=== PATIENT | female | born 1965 | race Caucasian/White ===

== ENCOUNTER → 2017-11-20 08:36 | Outpatient (CLI) | payer BC, SELFPAY ==
--- NOTE | 2017-11-20 08:41 | XR_ITS ---
XR foot LT min 3V HISTORY: ITS.REASON: LT FOOT PAIN ORDERING PHYSICIAN: Cecille De La Fuente PATIENT AGE: 52 years COMPARISON: 11/12/2016 FINDINGS: No fracture or dislocation. No lytic or blastic change. There is normal mineralization.. There are minimal osteoarthritic changes of the first metatarsophalangeal joint. There is a small calcaneal spur nonspecific. IMPRESSION: Minimal osteoarthritis of the first metatarsophalangeal joint. Overall no change with no acute finding
== END ==
PROVIDERS: PCP Nurse Practitioner; Visit Provider Nurse Practitioner
DX: M79.672 Pain in left foot (principal)
CPT/HCPCS: 73630

== ENCOUNTER → 2018-01-28 16:55 | Outpatient (CLI) | payer BC, SELFPAY ==
--- NOTE | 2018-01-28 17:00 | XR_ITS ---
XR chest 2V HISTORY: ITS.REASON: HYPERTENSION, DM ORDERING PHYSICIAN: Fabi Oconenll PATIENT AGE: 52 years COMPARISON: 09/27/2011 FINDINGS: The cardiomediastinal silhouette and pulmonary vascularity are within normal limits. The lungs are clear without infiltrates, suspicious nodules, or pleural effusions. No acute bony abnormalities. IMPRESSION: Negative chest, no acute finding
== END ==
PROVIDERS: PCP Nurse Practitioner; Visit Provider Physician Assistant
DX: I10 Essential (primary) hypertension (principal); E11.9 Type 2 diabetes mellitus without complications; E53.8 Deficiency of other specified B group vitamins; E55.9 Vitamin D deficiency, unspecified; E66.01 Morbid (severe) obesity due to excess calories; G47.33 Obstructive sleep apnea (adult) (pediatric)
CPT/HCPCS: 71046

== ENCOUNTER → 2018-02-05 12:36 | Outpatient (CLI) | payer BC, SELFPAY ==
--- NOTE | 2018-02-05 12:39 | XR_ITS ---
XR wrist LT min 3V HISTORY ITS.REASON: left wrist pain ORDERING PHYSICIAN: Renato Beard MD PATIENT AGE: 52 years Comparison: None FINDINGS: There are osteoarthritic changes of the first metacarpal carpal joint. In addition, there is a separate calcific density along the base of the first metacarpal lateral to the trapezium. This density measures 3 mm and could be due to an avulsion-type fracture. The remaining bony structures are unremarkable. IMPRESSION: Osteoarthritis of the first metacarpocarpal joint with suspected avulsion fracture at the lateral aspect of the first metacarpal carpal
== END ==
PROVIDERS: PCP Nurse Practitioner; Visit Provider Orthopaedic Surgery
DX: M25.532 Pain in left wrist (principal)
CPT/HCPCS: 73110

== ENCOUNTER → 2018-03-04 18:04 | Outpatient (CLI) | payer BC, SELFPAY ==
[2018-03-04 18:19] LABS: Adenovirus F 40/41, stool Not Detected (NotDetected); Astrovirus Not Detected (NotDetected); Campylobacter Not Detected (NotDetected); Cryptosporidium Not Detected (NotDetected); Cyclospora Cayetanesis Not Detected (NotDetected); Entamoeba histolytica Not Detected (NotDetected); Enteroaggregative E coli Not Detected (NotDetected); Enteropathogenic E coli Not Detected (NotDetected); Enterotoxigenic E coli Not Detected (NotDetected); Giardia lamblia Not Detected (NotDetected); Norovirus Not Detected (NotDetected); Plesimonas Shigalloides, PCR Not Detected (NotDetected); Rotavirus A Not Detected (NotDetected); Salmonella, PCR Not Detected (NotDetected); Sapovirus Not Detected (NotDetected); Shiga-like toxin E coli Not Detected (NotDetected); Shigella Enterovasive E coli Not Detected (NotDetected); Vibrio Cholerae Not Detected (NotDetected); Vibrio, PCR Not Detected (NotDetected); Yersinia Entercolitica, PCR Not Detected (NotDetected)
[2018-03-04 22:39] LABS: Clostridium Difficile A/B, PCR Detected (NotDetected)
== END ==
PROVIDERS: PCP Nurse Practitioner; Visit Provider Surgery
DX: R19.7 Diarrhea, unspecified (principal)
CPT/HCPCS: 87507

== ENCOUNTER → 2018-04-08 09:54 | Outpatient (CLI) | payer BC, SELFPAY ==
--- NOTE | 2018-04-08 10:11 | XR_ITS ---
XR chest 2V HISTORY: ITS.REASON: RT SIDED THORACIC BACK PAIN ORDERING PHYSICIAN: Cecille De La Fuente PATIENT AGE: 53 years COMPARISON: 01/28/2018 FINDINGS: The cardiomediastinal silhouette and pulmonary vascularity are within normal limits. The lungs are clear without infiltrates, suspicious nodules, or pleural effusions. No acute bony abnormalities. IMPRESSION: Negative chest, no acute finding
== END ==
PROVIDERS: PCP Nurse Practitioner; Visit Provider Nurse Practitioner
DX: M54.6 Pain in thoracic spine (principal)
CPT/HCPCS: 71046

== ENCOUNTER → 2019-04-16 10:47 | Outpatient (CLI) | payer BC, SELFPAY ==
--- NOTE | 2019-04-16 10:53 | US_ITS ---
PROCEDURE: US KIDNEY CLINICAL INDICATION: ELEVATED BUN,ELEVATED CREATINE COMPARISON: No exams were available for comparison FINDINGS: Right kidney is 10.0 x 4.0 x 5.1 centimeters. Left kidney is 10.0 x 5.1 x 4.9 centimeters. The renal cortical areas are normal. Bilaterally there are no shadowing echogenic foci, cortical lesions or hydronephrosis. IMPRESSION: Normal exam. Dictated by: Gabo Dinero 04/16/2019 11:32 Electronically signed by Gabo Dinero in [facility] 04/16/2019 11:32
== END ==
PROVIDERS: PCP Nurse Practitioner; Visit Provider Nurse Practitioner Family
DX: R79.9 Abnormal finding of blood chemistry, unspecified (principal); R79.89 Other specified abnormal findings of blood chemistry
CPT/HCPCS: 76770

== ENCOUNTER → 2019-06-04 10:52 | Outpatient (CLI) | payer BC, SELFPAY ==
--- NOTE | 2019-06-04 10:59 | XR_ITS ---
PROCEDURE: XR FOOT WT BEARING LT 3V CLINICAL INDICATION: Pain Foot and ankle pain COMPARISON: FTR3 FOOT-RT-3 VIEWS from 09/10/2016 FTL3 FOOT-LT-3 VIEWS from 11/12/2016 FTR3 FOOT-RT-3 VIEWS from 11/12/2016 [id number] XR foot LT min 3V from 11/20/2017 XR ANKLE WT BEARING LT MIN 3V from 06/04/2019 FINDINGS: No fracture or dislocation. No lytic or blastic change. There is normal mineralization. The joint spaces are well-preserved. No significant degenerative/arthritic changes. No erosive changes evident. Other findings:There is a small calcaneal spur and there is borderline pes planus IMPRESSION: Small calcaneal spur with borderline pes planus otherwise negative Dictated by: Jose Washington MD 06/04/2019 11:36 Electronically signed by Jose Washington MD in [facility] 06/04/2019 11:36
--- NOTE | 2019-06-04 10:59 | XR_ITS ---
PROCEDURE: XR FOOT WT BEARING LT 3V CLINICAL INDICATION: Pain Foot and ankle pain COMPARISON: FTR3 FOOT-RT-3 VIEWS from 09/10/2016 FTL3 FOOT-LT-3 VIEWS from 11/12/2016 FTR3 FOOT-RT-3 VIEWS from 11/12/2016 [id number] XR foot LT min 3V from 11/20/2017 XR ANKLE WT BEARING LT MIN 3V from 06/04/2019 FINDINGS: No fracture or dislocation. No lytic or blastic change. There is normal mineralization. The joint spaces are well-preserved. No significant degenerative/arthritic changes. No erosive changes evident. Other findings:There is a small calcaneal spur and there is borderline pes planus IMPRESSION: Small calcaneal spur with borderline pes planus otherwise negative Dictated by: Jose Washington MD 06/04/2019 11:36 Electronically signed by Jose Washington MD in [facility] 06/04/2019 11:36
== END ==
PROVIDERS: PCP Nurse Practitioner; Visit Provider Podiatrist
DX: M72.2 Plantar fascial fibromatosis (principal); M79.672 Pain in left foot; M77.31 Calcaneal spur, right foot; M77.32 Calcaneal spur, left foot
CPT/HCPCS: 73610; 73630

== ENCOUNTER → 2019-06-30 10:22 | Outpatient (CLI) | payer BC, SELFPAY ==
--- NOTE | 2019-06-30 10:22 | MR_ITS ---
PROCEDURE: MR FOOT LT WO/W CON CLINICAL INDICATION: eval for plantar fascial tear, calc stress fx. Left foot pain and swelling COMPARISON: XR FOOT WT BEARING LT 3V from 06/04/2019 TECHNIQUE: Routine multiplanar multi echo sequences are performed without and with gadolinium enhancement. FINDINGS: No obvious ligamentous abnormalities. The plantar fascia has an unremarkable appearance. No fracture or dislocation. No bone bruise. There is a small amount fluid along the posterior talocalcaneal joint.. There is some increased T2 signal within the posterior aspect of the flexor digitorum brevis muscle which is best demonstrated on series 7, image 41 and series 9, image 15. there is a small amount fluid posterior to the talocalcaneal region. IMPRESSION: 1. There is a small focal area of increased T2 signal involving the posterior aspect of the flexor digitorum brevis muscle. This is just deep to the plantar fascia and is approximately 2 cm anterior to the fascial insertion on the calcaneus. This could be due to underlying inflammation or could be posttraumatic such as muscle strain or partial tear. 2. No other significant anomalies are evident. Dictated by: Jose Washington MD 07/03/2019 11:53 Electronically signed by Jose Washington MD in [facility] 07/03/2019 11:53
== END ==
PROVIDERS: PCP Nurse Practitioner; Visit Provider Podiatrist
DX: M72.2 Plantar fascial fibromatosis (principal)
CPT/HCPCS: 73720; A9576

== ENCOUNTER → 2019-12-23 10:11 | Outpatient (CLI) | payer BC, SELFPAY ==
--- NOTE | 2019-12-23 | CA_ITS ---
APPROVED REPORT Right Lower Extremity Venous Study for DVT. Arterial Embalmer: CT Indications Lower Extremity Pain: Right Lower Extremity Edema: Right Vein Imaging CFV (R): compressive, spontaneous, phasic, augmentation SFJ (R): compressive, spontaneous, phasic, augmentation FEM (R): compressive, spontaneous, phasic, augmentation POP (R): compressive, spontaneous, phasic, augmentation DFV (R): compressive, spontaneous, phasic, augmentation PTV (R): compressive, spontaneous, phasic, augmentation GSV (R): compressive, spontaneous, phasic, augmentation SSV (R): compressive, spontaneous, phasic, augmentation Peroneals (R):compressive, spontaneous, phasic, augmentation GAS (R): compressive, spontaneous, phasic, augmentation Findings RLE negative for DVT/SVT. Vessels fully compressible. No reflux noted. Conclusion RLE negative for DVT/SVT. Vessels fully compressible. No reflux noted. Electronically signed by : Jose Washington MD 12/23/2019 17:27:59
== END ==
PROVIDERS: PCP Family Medicine; Visit Provider Family Medicine
DX: M79.671 Pain in right foot (principal); R60.0 Localized edema
CPT/HCPCS: 93971

== ENCOUNTER → 2020-10-17 16:37 | Outpatient (CLI) | payer BC, SELFPAY ==
--- NOTE | 2020-10-17 16:41 | XR_ITS ---
PROCEDURE: XR FOOT WT BEARING LT 3V CLINICAL INDICATION: foot pain COMPARISON: CR FTR3 FOOT-RT-3 VIEWS from 11/12/2016 CR FTL3 FOOT-LT-3 VIEWS from 11/12/2016 CR [id number] XR foot LT min 3V from 11/20/2017 CR XR FOOT WT BEARING LT 3V from 06/04/2019 FINDINGS: No fracture or dislocation. No lytic or blastic change. There is normal mineralization. The joint spaces are well-preserved. No significant degenerative/arthritic changes. No erosive changes evident. Other findings:None. IMPRESSION: No acute findings. Dictated by: Jose Washington MD 10/17/2020 17:26 Jose Washington MD in [facility] 10/17/2020 17:26
== END ==
PROVIDERS: PCP Family Medicine; Visit Provider Podiatrist
DX: M79.672 Pain in left foot (principal)
CPT/HCPCS: 73630

== ENCOUNTER → 2021-03-02 10:04 | Outpatient (CLI) | payer BC, SELFPAY ==
[2021-03-02 12:01] LABS: Coronavirus 19 IgG Antibody Negative (Negative); Coronavirus 19 IgM Antibody Negative (Negative)
== END ==
PROVIDERS: Visit Provider Family Medicine
DX: Z01.84 Encounter for antibody response examination (principal); R50.9 Fever, unspecified
CPT/HCPCS: 86328

== ENCOUNTER → 2021-06-18 14:55 | Outpatient (CLI) | payer BC, SELFPAY ==
--- NOTE | 2021-06-18 | CA_ITS ---
FINAL REPORT CLINICAL HISTORY: cramps with lt le edema and residual pain, C/o-Fibromyalgia FINDINGS: Color Doppler, duplex Doppler and compression sonography of the bilateral lower extremities was performed. There is no evidence of deep venous thrombosis from the level of the groin to the calf. The deep veins are patent and compressible. IMPRESSION: No evidence of deep venous thrombosis bilateral lower extremities. Reviewed, Interpreted and Dictated by Quinn Lynn III, MD Transcribed by Rhea Garcia Authenticated by Quinn Lynn III, MD on 06/18/2021 04:39:14 PM [facility]
== END ==
PROVIDERS: PCP Family Medicine; Visit Provider Family Medicine
DX: R60.0 Localized edema (principal)
CPT/HCPCS: 93970

== ENCOUNTER → 2021-08-29 12:50 | Outpatient (CLI) | payer BC, SELFPAY ==
[2021-08-29 14:10] LABS: Alanine Aminotransferase 28 U/L (12-78); Albumin/Globulin Ratio 1.8 (1.1-1.8); Alkaline Phosphatase 62 U/L (38-126); Anion Gap 9.6 mEq/L (5-15); Aspartate Amino Transferase 28 U/L (14-36); Bilirubin,Total 0.5 mg/dl (0.2-1.3); Blood Urea Nitrogen 20 mg/dl (7-17); Calcium 9.4 mg/dl (8.4-10.2); Carbon Dioxide 30 mmol/L (22.0-30.0); Chloride 103 mmol/L (98-107); Chol/HDL Ratio 3.4 (1-3.5); Cholesterol 238 mg/dl (140-200); Estimated Glomerular Filt Rate 87 ml/min (>60); GFR (African American) 105 ML/MIN (>60); Globulin 2.2 g/dL (1.3-3.2); Glucose 97 mg/dl (74-100); HDL Cholesterol 69 mg/dl (40-60); Potassium 3.6 mmoL/L (3.5-5.1); Sodium 139 mmol/L (136-145); Total Protein,Serum 6.2 g/dl (6.3-8.2); Triglycerides 126 mg/dl (30-150); VLDL Cholesterol 25 mg/dL (0-40)
[2021-08-29 14:21] LABS: Direct LDL Cholesterol 118.95 mg/dL (100-129); Hematocrit 38.6 % (37.0-47.0); Hemoglobin 12.6 g/dL (12.2-16.2); Mean Corpuscular HGB Conc 32.8 g/dL (31.8-35.4); Mean Corpuscular Hemoglobin 28.7 pg (27.0-31.2); Mean Corpuscular Volume 87.7 fl (81-99); Platelet Count 258 K/mm3 (142-424); White Blood Count 6.3 K/mm3 (4.8-10.8)
[2021-08-29 14:24] LABS: Intact Parathyroid Hormone 52.1 pg/mL (7.5-53.5)
[2021-08-29 14:30] LABS: 25-OH Vitamin D, Total 72.6 ng/mL (30-100)
[2021-08-29 14:43] LABS: Thyroid Stimulating Hormone 1.68 uIU/mL (0.465-4.68)
[2021-08-29 15:10] LABS: Ferritin 129 ng/ml (11.1-264)
[2021-08-29 15:15] LABS: Iron 91 ug/dL (37-170)
[2021-08-29 15:25] LABS: Folate > 20.00 ng/mL
[2021-08-29 17:30] LABS: Hemoglobin A1C 6.1 % (4.0-6.0)
[2021-08-31 12:13] LABS: Prealbumin 28 mg/dL (10-36)
[2021-09-09 10:15] LABS: Methylmalonic Acid 175 nmol/L (0-378)
[2021-09-10 16:41] LABS: Vitamin A 59.4 ug/dL (20.1-62.0); Vitamin E Alpha Tocopherol 19.4 mg/L (7.0-25.1); Vitamin E Gamma Tocopherol 1.5 mg/L (0.5-5.5)
== END ==
PROVIDERS: Visit Provider Physician Assistant
DX: Z98.84 Bariatric surgery status (principal); Z13.21 Encounter for screening for nutritional disorder
CPT/HCPCS: 36415; 80053; 80061; 82131; 82306; 82728; 82746; 83036; 83540; 83970; 84134; 84425; 84443; 84446; 84590; 85014; 85018; 85048; 85049

== ENCOUNTER 2021-09-03 15:26 | Emergency (ER) | payer BC, SELFPAY ==
[2021-09-03] VITALS (8 sets, daily range): BP systolic 137–197; BP diastolic 83–108; PULSE 83–101; RESP 12–20; TEMP 36.7; O2SAT 95–98; BMI 37.9
--- NOTE | 2021-09-03 15:21 | ECG_ITS ---
APPROVED REPORT Exam: Resting ECG HR:97 bpm ECG Measurements Heart Rate 97 AXES [place] 160 P 38 QRSd 82 QRS 33 QT 324 T 31 QTc 378 Conclusion SINUS RHYTHM NORMAL ECG UNCONFIRMED REPORT Electronically signed by : Steve Barrett MD 09/04/2021 21:29:50
--- NOTE | 2021-09-03 16:02 | XR_ITS ---
PROCEDURE INFORMATION: Exam: XR Chest Exam date and time: 09/03/2021 4:15 PM Age: 56 years old Clinical indication: Chest wall pain; Additional info: Chest pain TECHNIQUE: Imaging protocol: XR of the chest. Views: 2 views. COMPARISON: CR XR CHEST 2V 04/15/2019 6:34 AM FINDINGS: Lungs: Unremarkable. No consolidation. Pleural spaces: Unremarkable. No pleural effusion. No pneumothorax. Heart/Mediastinum: Unremarkable. No cardiomegaly. Bones/joints: Unremarkable. IMPRESSION: No acute findings.
[2021-09-03 16:19] LABS: Chloride 101 mmol/L (98-107); Sodium 137 mmol/L (136-145)
[2021-09-03 16:20] LABS: Potassium 3.6 mmoL/L (3.5-5.1)
[2021-09-03 16:22] LABS: Amylase 61 U/L (30-110); Basophils % 0.5 % (0.1-2.0); Blood Urea Nitrogen 26 mg/dl (7-17); Creatinine Clearance Estimated 130 mL/min (50-200); Eosinophils # 0.2 K/mm3 (0.0-0.4); Eosinophils % 1.8 % (0.1-12.0); Estimated Glomerular Filt Rate 74 ml/min (>60); GFR (African American) 90 ML/MIN (>60); Hematocrit 40.7 % (37.0-47.0); Hemoglobin 13.2 g/dL (12.2-16.2); Lymphocytes # 1.1 K/mm3 (0.7-4.5); Lymphocytes % 13.9 % (10-50); Mean Corpuscular HGB Conc 32.5 g/dL (31.8-35.4); Mean Corpuscular Hemoglobin 28.6 pg (27.0-31.2); Mean Corpuscular Volume 88.2 fl (81-99); Mean Platelet Volume 8.8 fl (7.4-10.4); Monocytes # 0.4 K/mm3 (0.1-1.0); Monocytes % 4.5 % (1.7-9.3); Neutrophils # 6.5 K/mm3 (1.8-7.8); Neutrophils % 79.3 % (37.0-80.0); Platelet Count 280 K/mm3 (142-424); Red Blood Count 4.61 M/mm3 (4.20-5.40); White Blood Count 8.3 K/mm3 (4.8-10.8)
[2021-09-03 16:23] LABS: Anion Gap 9.6 mEq/L (5-15); Carbon Dioxide 30 mmol/L (22.0-30.0); Glucose 117 mg/dl (74-100); Lipase 251 U/L (23-300)
--- NOTE | 2021-09-03 16:31 | PC.NURSE ---
ED MD at
[2021-09-03 16:39] LABS: Troponin I < 0.01 ng/ml (0.00-0.034)
[2021-09-03 16:45] LABS: Chloride 101 mmol/L (98-107); Potassium 3.7 mmoL/L (3.5-5.1); Sodium 136 mmol/L (136-145)
[2021-09-03 16:47] LABS: Alanine Aminotransferase 40 U/L (12-78); Blood Urea Nitrogen 26 mg/dl (7-17); Creatinine Clearance Estimated 130 mL/min (50-200); Estimated Glomerular Filt Rate 74 ml/min (>60); GFR (African American) 90 ML/MIN (>60)
[2021-09-03 16:48] LABS: Albumin Level 4.1 g/dl (3.5-5.0); Albumin/Globulin Ratio 1.4 (1.1-1.8); Alkaline Phosphatase 69 U/L (38-126); Anion Gap 9.7 mEq/L (5-15); Aspartate Amino Transferase 61 U/L (14-36); Bilirubin,Total 0.9 mg/dl (0.2-1.3); Calcium 9.1 mg/dl (8.4-10.2); Carbon Dioxide 29 mmol/L (22.0-30.0); Globulin 2.9 g/dL (1.3-3.2); Glucose 117 mg/dl (74-100)
[2021-09-03 17:06] LABS: Lactic Acid 0.9 mmol/L (0.7-2.1)
--- NOTE | 2021-09-03 18:30 | PC.NURSE ---
patient ambulatory to restroom without complications
--- NOTE | 2021-09-03 18:40 | PC.NURSE ---
patient ambulatory back to ED room 3 without complications
[2021-09-03 20:00] LABS: Troponin I < 0.01 ng/ml (0.00-0.034)
--- NOTE | 2021-09-03 20:20 | CT_ITS ---
PROCEDURE INFORMATION: Exam: CT Abdomen And Pelvis With Contrast Exam date and time: 09/03/2021 8:31 PM Age: 56 years old Clinical indication: Nausea and vomiting and other: Diarrhea; Abdominal pain; Additional info: Abd pain TECHNIQUE: Imaging protocol: Computed tomography of the abdomen and pelvis with contrast. Radiation optimization: All CT scans at this facility use at least one of these dose optimization techniques: automated exposure control; mA and/or kV adjustment per patient size (includes targeted exams where dose is matched to clinical indication); or iterative reconstruction. Contrast material: ISOVUE; Contrast volume: 75 ml; Contrast route: IV; COMPARISON: US KIDNEY 04/16/2019 10:39 AM FINDINGS: Liver: Normal. No mass. Gallbladder and bile ducts: Normal. No calcified stones. No ductal dilation. Pancreas: Normal. No ductal dilation. Spleen: Normal. No splenomegaly. Adrenal glands: 1.2 cm left adrenal adenoma. Kidneys and ureters: Normal. No hydronephrosis. Stomach and bowel: Surgical staple line along the left lateral gastric wall. Appendix: No evidence of appendicitis. Intraperitoneal space: Unremarkable. No free air. No significant fluid collection. Vasculature: Unremarkable. No abdominal aortic aneurysm. Lymph nodes: Unremarkable. No enlarged lymph nodes. Urinary bladder: Unremarkable as visualized. Reproductive: Unremarkable as visualized. Bones/joints: Unremarkable. No acute fracture. Soft tissues: Unremarkable. IMPRESSION: 1. No acute findings. 2. 1.2 cm left adrenal adenoma. No follow-up imaging is recommended.
--- NOTE | 2021-09-03 21:43 | HMH.EDGENADL ---
ED Disposition Clinical Impression: Abdominal discomfort Disposition: Home, Self-Care Condition on Discharge: Good Prescriptions: Ondansetron [Zofran 4mg ODT] 4 mg PO TIDP PRN 2 Days #6 tab PRN Reason: Nausea Transmission Status: Pending to [facility] #[id number] Referrals: Vannessa Lopez [Primary Care Provider] - - Critical Care Critical Care Time: No Attestation: On 09/03/21, the high probability of a clinically significant, sudden or life threatening deterioration of the following system(s) required my full and direct attention, intervention and personal management. The time I documented below is in addition to time spent performing reported procedures but includes the following listed in this critical care notation. Medical Decision Making - Nash Inquiry Pt receiving controlled substance: No Vital Signs: 09/03/21 15:26 09/03/21 15:30 09/03/21 16:00 Temperature Pulse Rate 97 H 99 H Pulse Rate [Left Radial] 97 H Respiratory Rate 18 Blood Pressure 137/90 172/96 H Blood Pressure [Right Arm] 160/96 H Blood Pressure Mean 123 Blood Pressure Mean [Right Arm] 117 Blood Pressure Source Automatic Cuff Blood Pressure Source [Right Arm] Automatic Cuff Blood Pressure Position Sitting Blood Pressure Position [Right Arm] Sitting 02 Sat by Pulse Oximetry 95 96 98 Oxygen Delivery Method Room Air Room Air 09/03/21 16:30 09/03/21 17:00 09/03/21 17:30 Temperature Pulse Rate 101 H 90 Pulse Rate [Left Radial] Respiratory Rate 12 20 18 Blood Pressure 163/89 H 183/96 H Blood Pressure [Right Arm] Blood Pressure Mean 113 125 Blood Pressure Mean [Right Arm] Blood Pressure Source Blood Pressure Source [Right Arm] Blood Pressure Position Blood Pressure Position [Right Arm] 02 Sat by Pulse Oximetry 97 Oxygen Delivery Method 09/03/21 18:00 09/03/21 21:39 Temperature 98.1 F Pulse Rate 90 83 Pulse Rate [Left Radial] Respiratory Rate 19 17 Blood Pressure 197/108 H 162/83 H Blood Pressure [Right Arm] Blood Pressure Mean 130 Blood Pressure Mean [Right Arm] Blood Pressure Source Blood Pressure Source [Right Arm] Blood Pressure Position Blood Pressure Position [Right Arm] 02 Sat by Pulse Oximetry 98 Oxygen Delivery Method Room Air - Lab Data Lab Results 09/03/21 15:45: WBC 8.3, RBC 4.61, Hgb 13.2, Hct 40.7, MCV 88.2, MCH 28.6, MCHC 32.5, RDW 14.0, Plt Count 280, MPV 8.8, Neut % (Auto) 79.3, Lymph % (Auto) 13.9, [place] % (Auto) 4.5, Eos % (Auto) 1.8, Baso % (Auto) 0.5, Neut # (Auto) 6.5, Lymph # (Auto) 1.1, [place] # (Auto) 0.4, Eos # (Auto) 0.2, Baso # (Auto) 0.0 09/03/21 15:45: Sodium 137, Potassium 3.6, Chloride 101, Carbon Dioxide 30, Anion Gap 9.6, BUN 26 H, Creatinine 0.80, Estimated Creat Clear 130, Estimated GFR 74, Est GFR ( Amer) 90, Glucose 117 H, Calcium 9.0, Troponin I < 0.01, Amylase 61, Lipase 251 09/03/21 15:45: Sodium 136, Potassium 3.7, Chloride 101, Carbon Dioxide 29, Anion Gap 9.7, BUN 26 H, Creatinine 0.80, Estimated Creat Clear 130, Estimated GFR 74, Est GFR ( Amer) 90, Glucose 117 H, Calcium 9.1, Total Bilirubin 0.9, AST 61 H, ALT 40, Alkaline Phosphatase 69, Total Protein 7.0, Albumin 4.1, Globulin 2.9, Albumin/Globulin Ratio 1.4 09/03/21 16:44: Lactate 0.9 09/03/21 19:21: Troponin I < 0.01 Result diagrams: 09/03/21 15:45 09/03/21 15:45 Orders (Tests/Meds): ED MEDICATIONS Generic Name Dose Route Start Last Admin Trade Name Freq PRN Reason Stop Dose Admin Sodium Chloride 500 mls @ 999 mls/hr 09/03/21 16:45 09/03/21 16:48 Sod Chlor 0.9% 1000ml Bag IV 09/03/21 17:15 999 mls/hr .Q31M CHUCK Administration Lactated Ringer's 1,000 mls @ 999 mls/hr 09/03/21 20:30 09/03/21 20:22 Lactated Ringer's 1000 Ml Bag IV 09/03/21 21:30 999 mls/hr .Q1H1M CHUCK Administration Sodium Chloride 10 ml 09/03/21 16:02 Sodium Chloride 0.9% 10ml Flush Syringe IV 10/03/21 16:01
== END 2021-09-03 21:48 | disposition home or self-care (01) ==
PROVIDERS: Emergency Provider Student in an Organized Health Care Education/Training Program; PCP Family Medicine
DX: R07.9 Chest pain, unspecified (principal); R11.2 Nausea with vomiting, unspecified; I10 Essential (primary) hypertension; K58.0 Irritable bowel syndrome with diarrhea; E11.9 Type 2 diabetes mellitus without complications; E03.9 Hypothyroidism, unspecified; M35.00 Sjogren syndrome, unspecified; M79.7 Fibromyalgia; F41.9 Anxiety disorder, unspecified; Z98.84 Bariatric surgery status; Z79.899 Other long term (current) drug therapy; Z88.0 Allergy status to penicillin; Z88.2 Allergy status to sulfonamides; Z88.8 Allergy status to other drugs, medicaments and biological substances; Z87.891 Personal history of nicotine dependence
CPT/HCPCS: 36415; 71046; 74177; 80048; 80053; 82150; 83605; 83690; 84484; 85025; 93005; 96361; 96374; 96375; 99285; J2405; Q9967

== ENCOUNTER → 2022-03-15 09:45 | Outpatient (CLI) | payer BC, SELFPAY ==
--- NOTE | 2022-03-15 10:20 | PC.NURSE ---
before and after PFT completed without incident. Pt given Albuterol 0.083% via HHN per protocol, Pt tolerated tx well.
== END ==
PROVIDERS: PCP Family Medicine; Visit Provider Family Medicine
DX: R06.02 Shortness of breath (principal); Z72.0 Tobacco use
CPT/HCPCS: 94060

== ENCOUNTER 2022-06-20 09:46 | Emergency (ER) | payer BC, SELFPAY ==
--- NOTE | 2022-06-20 09:51 | CT_ITS ---
FINAL REPORT TECHNIQUE: Thin section axial images were obtained from skull base to vertex without contrast. Coronal and sagittal reconstruction images were obtained from the axial data. Exam was performed using dose reduction technique. CLINICAL HISTORY: headache change in character, patient states she gets frequent migraines FINDINGS: There is no mass effect or midline shift. There is no hydrocephalus. There is no intracranial hemorrhage. The posterior fossa is without acute abnormality. The basilar cisterns are preserved. The soft tissues are without acute abnormality. No acute osseous abnormality is identified. IMPRESSION: No acute intracranial abnormality. Reviewed, Interpreted and Dictated by Lisbet Hdz MD Transcribed by Rhea Garcia Authenticated and [facility]
[2022-06-20 09:54] VITALS: BP 135/52; PULSE 98; RESP 20; TEMP 37.1; O2SAT 96; BMI 37.3
--- NOTE | 2022-06-20 09:58 | HMH.EDGENADL ---
Discharge Plan Disposition Patient Disposition: Home, Self-Care Condition: Fair Chief Complaint: Headache Prescriptions Prescriptions: No Action Saxenda 3 mg/0.5 mL (18 mg/3 mL) pen injector 3 mg SQ ergocalciferol (vitamin D2) 1,000 unit tablet 1,000 unit tablet PO levothyroxine 125 mcg capsule 125 mcg PO DAILY omeprazole 20 mg capsule,delayed release(DR/EC) 20 mg PO DAILY metoprolol succinate 100 mg capsule,sprinkle,ER 24hr 100 mg PO DAILY vitamin B complex [B Complex-Vitamin B12] tablet 1 tab PO DAILY calcium polycarbophil [Fiber Therapy (ca polycarboph)] 625 mg tablet 1,250 mg PO DAILY tizanidine 4 mg capsule 4 mg PO HS biotin 10,000 mcg capsule 10,000 mcg PO DAILY losartan 100 mg tablet PO hydrochlorothiazide 25 mg tablet PO potassium 99 MG tablet 99 mg PO DAILY ondansetron 4 MG tablet,disintegrating 4 mg PO TIDP PRN (Reason: Nausea) 2 Days Qty: 6 0RF Referrals Follow up/Referrals: Vannessa Lopez [Primary Care Provider] - See instructions Activity Restrictions/Add. Instructions Additional Instructions/Restrictions: You have been evaluated for headache, consistent with migraine. Please monitor your symptoms closely. Continue taking all medications as prescribed. Your creatinine level today is elevated, indicating kidney injury. Please stay hydrated. Avoid NSAID medication. Follow-up with your primary care doctor for lab recheck in 2 to 3 days. Return to the emergency department at once for any new or worsening symptoms. Clinical Impressions Clinical Impression: Migraine, Creatinine elevation, MAGALI (acute kidney injury) Instructions Patient Instructions: DI for Migraine Discharge ED Provider: Rhonda Vega Adult HPI General Chief complaint: Headache Stated complaint: Headache Time Seen by Provider: 06/20/22 09:50 Mode of Arrival: Ambulatory Source of Information: Patient Limitations: No Limitations History of Present Illness HPI narrative: 57-year-old female presenting to the emergency department with headache. Headache is described as constant, pounding. It is located on the right side of the scalp. Radiates all over the head. This headache started yesterday evening. Started similar to her migraines. Was worse this morning. She tried taking her prescribed Ubrelvy without relief. She suffers from migraine headaches a few times every month. They have been coming more frequent. No vision changes, speech difficulty. No recent illness, fevers, chills, nausea, vomiting. She has a neurologist and believes she has had head imaging, but not sure when. Related Data Home Medications Medication Instructions Recorded Confirmed biotin 10,000 mcg capsule 10,000 mcg PO DAILY Diet supplement 02/05/18 11/07/20 calcium polycarbophil 625 mg 1,250 mg PO DAILY Diet supplement 02/05/18 11/07/20 tablet (Fiber Therapy (ca polycarbophil)) levothyroxine 125 mcg capsule 125 mcg PO DAILY thyroid 02/05/18 11/07/20 metoprolol succinate 100 mg 100 mg PO DAILY High blood pressure 02/05/18 11/07/20 capsule sprinkle, ext. release 24 hr omeprazole 20 mg capsule,delayed 20 mg PO DAILY GERD 02/05/18 11/07/20 release tizanidine 4 mg capsule 4 mg PO HS spasms 02/05/18 11/07/20 vitamin B complex (B 1 tab PO DAILY Diet supplement 02/05/18 11/07/20 Complex-Vitamin B12 tablet) potassium 99 mg tablet 99 mg PO DAILY Diet supplement 04/15/19 11/07/20 hydrochlorothiazide 25 mg tablet PO 06/17/19 11/07/20 losartan 100 mg tablet PO 06/17/19 11/07/20 ergocalciferol (vitamin D2) 1,000 tab PO 11/07/20 unit tablet liraglutide (weight loss) 3 mg/0.5 3 mg SQ 11/07/20 11/07/20 mL (18 mg/3 mL) subcut pen injector (Peyman) Previous Rx's Medication Instructions Recorded ondansetron 4 mg disintegrating 4 mg PO TIDP PRN Nausea 2 days #6 09/03/21 tablet tabs Allergies Allergy/AdvReac Type Severity
[2022-06-20 10:00] VITALS: BP 134/68; PULSE 98; O2SAT 97
[2022-06-20 10:06] LABS: Basophils # 0.1 K/mm3 (0-0.2); Basophils % 1.4 % (0.1-2.0); Eosinophils # 0.2 K/mm3 (0.0-0.4); Eosinophils % 3.2 % (0.1-12.0); Hematocrit 40.8 % (37.0-47.0); Hemoglobin 13.3 g/dL (12.2-16.2); Lymphocytes # 0.9 K/mm3 (0.7-4.5); Lymphocytes % 12.6 % (10-50); Mean Corpuscular HGB Conc 32.6 g/dL (31.8-35.4); Mean Corpuscular Hemoglobin 28.3 pg (27.0-31.2); Mean Corpuscular Volume 86.6 fl (81-99); Mean Platelet Volume 8.9 fl (7.4-10.4); Monocytes # 0.8 K/mm3 (0.1-1.0); Monocytes % 11.7 % (1.7-9.3); Neutrophils # 4.9 K/mm3 (1.8-7.8); Neutrophils % 71.1 % (37.0-80.0); Platelet Count 301 K/mm3 (142-424); Red Blood Count 4.71 M/mm3 (4.20-5.40); Red Cell Distribution Width 13.7 % (11.5-17.5); White Blood Count 6.9 K/mm3 (4.8-10.8)
[2022-06-20 10:12] LABS: Chloride 97 mmol/L (98-107); Sodium 137 mmol/L (136-145)
[2022-06-20 10:13] LABS: Potassium 3.5 mmoL/L (3.5-5.1)
[2022-06-20 10:15] LABS: Alanine Aminotransferase 25 U/L (12-78); Albumin Level 4.5 g/dl (3.5-5.0); Alkaline Phosphatase 62 U/L (38-126); Aspartate Amino Transferase 29 U/L (14-36); Bilirubin,Total 0.4 mg/dl (0.2-1.3); Blood Urea Nitrogen 32 mg/dl (7-17); Creatinine Clearance Estimated 53 mL/min (50-200); Estimated Glomerular Filt Rate 27 ml/min (>60); GFR (African American) 33 ML/MIN (>60)
[2022-06-20 10:16] LABS: Albumin/Globulin Ratio 1.5 (1.1-1.8); Anion Gap 12.5 mEq/L (5-15); Calcium 8.9 mg/dl (8.4-10.2); Carbon Dioxide 31 mmol/L (22.0-30.0); Glucose 106 mg/dl (74-100); Total Protein,Serum 7.5 g/dl (6.3-8.2)
[2022-06-20 10:21] LABS: C-Reactive Protein 15.6 mg/L (0-4)
--- NOTE | 2022-06-20 10:21 | PC.NURSE ---
pt medicated and updated
[2022-06-20 10:30] VITALS: BP 149/84; PULSE 91; O2SAT 99
[2022-06-20 10:48] LABS: Erythrocyte Sedimentation Rate 24 mm/hr (0-30)
--- NOTE | 2022-06-20 10:58 | PC.NURSE ---
contacted rad to check on status of ct results, waiting employment consultant back
[2022-06-20 11:01] VITALS: BP 146/73; PULSE 84; RESP 20; O2SAT 96
--- NOTE | 2022-06-20 11:36 | PC.NURSE ---
PT DOING FINE WITH PO CHALLENGE
--- NOTE | 2022-06-20 11:54 | PC.NURSE ---
PT BEING D/C WITH NO QUESTIONS OR CONCERNS
[2022-06-20 11:56] VITALS: BP 116/54; PULSE 84; RESP 18; TEMP 37.1; O2SAT 97
== END 2022-06-20 11:56 | disposition home or self-care (01) ==
PROVIDERS: Emergency Provider Emergency Medicine; PCP Family Medicine
DX: G43.909 Migraine, unspecified, not intractable, without status migrainosus (principal); N17.9 Acute kidney failure, unspecified
CPT/HCPCS: 70450; 80053; 85025; 85651; 86140; 96361; 96374; 96375; 99285

== ENCOUNTER → 2022-12-13 07:21 | Outpatient (CLI) | payer BC, SELFPAY ==
[2022-12-13 07:47] LABS: Basophils % 0.5 % (0.1-2.0); Eosinophils # 0.3 K/mm3 (0.0-0.4); Hematocrit 40.9 % (37.0-47.0); Lymphocytes # 2.1 K/mm3 (0.7-4.5); Lymphocytes % 33.7 % (10-50); Mean Corpuscular HGB Conc 31.8 g/dL (31.8-35.4); Mean Corpuscular Hemoglobin 27.9 pg (27.0-31.2); Mean Platelet Volume 9.3 fl (7.4-10.4); Monocytes # 0.4 K/mm3 (0.1-1.0); Monocytes % 6.8 % (1.7-9.3); Neutrophils # 3.4 K/mm3 (1.8-7.8); Neutrophils % 55.1 % (37.0-80.0); Platelet Count 262 K/mm3 (142-424); Red Blood Count 4.65 M/mm3 (4.20-5.40); Red Cell Distribution Width 13.5 % (11.5-17.5); White Blood Count 6.2 K/mm3 (4.8-10.8)
[2022-12-13 08:28] LABS: Hemoglobin A1C 5.9 % (4.0-6.0)
[2022-12-13 08:55] LABS: Alanine Aminotransferase 22 U/L (12-78); Albumin Level 4.2 g/dl (3.5-5.0); Albumin/Globulin Ratio 1.6 (1.1-1.8); Alkaline Phosphatase 69 U/L (38-126); Anion Gap 12.6 mEq/L (5-15); Aspartate Amino Transferase 25 U/L (14-36); Bilirubin,Total 0.3 mg/dl (0.2-1.3); Blood Urea Nitrogen 20 mg/dl (7-17); Calcium 9.5 mg/dl (8.4-10.2); Carbon Dioxide 31 mmol/L (22.0-30.0); Chloride 102 mmol/L (98-107); Chol/HDL Ratio 5.5 (1-3.5); Cholesterol 241 mg/dl (140-200); Estimated Glomerular Filt Rate 46 ml/min (>60); GFR (African American) 56 ML/MIN (>60); Globulin 2.6 g/dL (1.3-3.2); Glucose 94 mg/dl (74-100); HDL Cholesterol 44 mg/dl (40-60); Phosphorous 4.3 mg/dl (2.5-4.5); Potassium 4.6 mmoL/L (3.5-5.1); Sodium 141 mmol/L (136-145); Total Protein,Serum 6.8 g/dl (6.3-8.2); Triglycerides 184 mg/dl (30-150); VLDL Cholesterol 37 mg/dL (0-40)
[2022-12-13 09:07] LABS: Direct LDL Cholesterol 122.23 mg/dL (100-129)
[2022-12-13 09:11] LABS: Free T4 (Free Thyroxine) 0.99 ng/dl (0.78-2.19)
[2022-12-13 09:13] LABS: 25-OH Vitamin D, Total 74.6 ng/mL (30-100)
[2022-12-13 09:26] LABS: Thyroid Stimulating Hormone 3.27 uIU/mL (0.465-4.68)
[2022-12-13 09:36] LABS: Iron 70 ug/dL (37-170)
[2022-12-13 09:46] LABS: Total Iron Binding Capacity 297 ug/dL (265-497)
[2022-12-13 10:13] LABS: Ferritin 158 ng/ml (11.1-264)
[2022-12-17 19:27] LABS: Vitamin B1 131.1 nmol/L (66.5-200.0)
[2022-12-18 13:41] LABS: Vitamin A 80.4 ug/dL (20.1-62.0); Vitamin E Alpha Tocopherol 19.9 mg/L (7.0-25.1); Vitamin E Gamma Tocopherol 1.1 mg/L (0.5-5.5)
[2022-12-19 10:46] LABS: Methylmalonic Acid 198 nmol/L (0-378)
== END ==
LOC: LAB 07:21
PROVIDERS: PCP Family Medicine; Visit Provider Physician Assistant
DX: Z90.3 Acquired absence of stomach [part of] (principal)
CPT/HCPCS: 36415; 80053; 80061; 82306; 82728; 82746; 83036; 83540; 83550; 83735; 83921; 84100; 84425; 84439; 84443; 84446; 84590; 85025

== ENCOUNTER → 2023-04-18 08:53 | Outpatient (CLI) | payer BC, SELFPAY ==
[2023-04-18 09:23] LABS: Basophils # 0.1 K/mm3 (0-0.2); Basophils % 1.2 % (0.1-2.0); Eosinophils # 0.1 K/mm3 (0.0-0.4); Eosinophils % 2.3 % (0.1-12.0); Hematocrit 39.4 % (37.0-47.0); Hemoglobin 13.3 g/dL (12.2-16.2); Lymphocytes % 37.8 % (10-50); Mean Corpuscular HGB Conc 33.6 g/dL (31.8-35.4); Mean Corpuscular Hemoglobin 28.7 pg (27.0-31.2); Mean Corpuscular Volume 85.3 fl (81-99); Mean Platelet Volume 8.1 fl (7.4-10.4); Monocytes # 0.4 K/mm3 (0.1-1.0); Neutrophils # 2.7 K/mm3 (1.8-7.8); Neutrophils % 51.7 % (37.0-80.0); Platelet Count 329 K/mm3 (142-424); Red Blood Count 4.62 M/mm3 (4.20-5.40); Red Cell Distribution Width 13.6 % (11.5-17.5); White Blood Count 5.3 K/mm3 (4.8-10.8)
[2023-04-18 09:47] LABS: Chloride 102 mmol/L (98-107); Sodium 137 mmol/L (136-145)
[2023-04-18 09:49] LABS: Alanine Aminotransferase 23 U/L (12-78); Aspartate Amino Transferase 27 U/L (14-36); Blood Urea Nitrogen 25 mg/dl (7-17); Estimated Glomerular Filt Rate 51 ml/min (>60); GFR (African American) 62 ML/MIN (>60)
[2023-04-18 09:50] LABS: Albumin Level 4.1 g/dl (3.5-5.0); Albumin/Globulin Ratio 1.7 (1.1-1.8); Alkaline Phosphatase 65 U/L (38-126); Bilirubin,Total 0.6 mg/dl (0.2-1.3); Calcium 9.1 mg/dl (8.4-10.2); Carbon Dioxide 29 mmol/L (22.0-30.0); Chol/HDL Ratio 4.8 (1-3.5); Cholesterol 220 mg/dl (140-200); Globulin 2.4 g/dL (1.3-3.2); Glucose 98 mg/dl (74-100); HDL Cholesterol 46 mg/dl (40-60); Iron 91 ug/dL (37-170); Total Protein,Serum 6.5 g/dl (6.3-8.2); Triglycerides 155 mg/dl (30-150); VLDL Cholesterol 31 mg/dL (0-40)
[2023-04-18 10:01] LABS: Direct LDL Cholesterol 125.73 mg/dL (100-129)
[2023-04-18 10:03] LABS: Total Iron Binding Capacity 307 ug/dL (265-497)
[2023-04-18 10:07] LABS: Hemoglobin A1C 5.7 % (4.0-6.0)
[2023-04-18 10:09] LABS: Free T4 (Free Thyroxine) 1.14 ng/dl (0.78-2.19)
[2023-04-18 10:26] LABS: Thyroid Stimulating Hormone 3.32 uIU/mL (0.465-4.68)
[2023-04-18 10:30] LABS: Ferritin 223 ng/ml (11.1-264)
[2023-04-18 11:11] LABS: 25-OH Vitamin D, Total 75.3 ng/mL (30-100)
[2023-04-18 13:43] LABS: Folate > 20.00 ng/mL
[2023-04-19 08:37] LABS: Prealbumin 34 mg/dL (10-36)
[2023-04-22 20:21] LABS: Vitamin A 91.9 ug/dL (20.1-62.0); Vitamin E Alpha Tocopherol 15.4 mg/L (7.0-25.1); Vitamin E Gamma Tocopherol 1.4 mg/L (0.5-5.5)
[2023-04-23 22:49] LABS: Methylmalonic Acid 194 nmol/L (0-378)
== END ==
PROVIDERS: PCP Family Medicine; Referring Provider Physician Assistant; Visit Provider Physician Assistant
DX: Z90.3 Acquired absence of stomach [part of] (principal); E78.5 Hyperlipidemia, unspecified; Z79.899 Other long term (current) drug therapy
CPT/HCPCS: 36415; 80053; 80061; 82306; 82728; 82746; 83036; 83540; 83550; 83921; 84134; 84425; 84439; 84443; 84446; 84590; 85025

== ENCOUNTER 2023-06-18 16:50 | Outpatient (CLI) | payer BC, SELFPAY ==
[2023-06-18 18:14] LABS: Alanine Aminotransferase 19 U/L (12-78); Albumin Level 4.5 g/dl (3.5-5.0); Albumin/Globulin Ratio 1.7 (1.1-1.8); Alkaline Phosphatase 64 U/L (38-126); Anion Gap 11.8 mEq/L (5-15); Aspartate Amino Transferase 25 U/L (14-36); Bilirubin,Total 0.3 mg/dl (0.2-1.3); Blood Urea Nitrogen 22 mg/dl (7-17); Calcium 9.4 mg/dl (8.4-10.2); Carbon Dioxide 29 mmol/L (22.0-30.0); Chloride 105 mmol/L (98-107); Estimated Glomerular Filt Rate 65 ml/min (>60); GFR (African American) 78 ML/MIN (>60); Globulin 2.7 g/dL (1.3-3.2); Glucose 95 mg/dl (74-100); Potassium 3.8 mmoL/L (3.5-5.1); Sodium 142 mmol/L (136-145); Total Protein,Serum 7.2 g/dl (6.3-8.2)
== END 2023-06-18 23:59 ==
LOC: LAB 16:51
PROVIDERS: PCP Family Medicine; Visit Provider Family Medicine
DX: N18.2 Chronic kidney disease, stage 2 (mild) (principal)
CPT/HCPCS: 36415; 80053; 84590

== ENCOUNTER 2023-08-14 08:43 | Outpatient (CLI) | payer BC, SELFPAY ==
[2023-08-17 22:07] LABS: Vitamin A 84.2 ug/dL (20.1-62.0)
== END 2023-08-14 23:59 | disposition home or self-care (01) ==
LOC: LAB 08:43
PROVIDERS: PCP Family Medicine; Visit Provider Family Medicine
DX: E67.0 Hypervitaminosis A (principal)
CPT/HCPCS: 36415; 84590

== ENCOUNTER 2023-11-20 07:47 | Outpatient (CLI) | payer BC, SELFPAY ==
[2023-11-20 08:12] LABS: Basophils # 0.1 K/mm3 (0-0.2); Basophils % 1.1 % (0.1-2.0); Eosinophils # 0.1 K/mm3 (0.0-0.4); Eosinophils % 2.9 % (0.1-12.0); Hematocrit 37.9 % (37.0-47.0); Hemoglobin 12.2 g/dL (12.2-16.2); Lymphocytes # 1.6 K/mm3 (0.7-4.5); Lymphocytes % 32.9 % (10-50); Mean Corpuscular HGB Conc 32.1 g/dL (31.8-35.4); Mean Corpuscular Hemoglobin 28.8 pg (27.0-31.2); Mean Corpuscular Volume 89.7 fl (81-99); Mean Platelet Volume 8.2 fl (7.4-10.4); Monocytes # 0.3 K/mm3 (0.1-1.0); Monocytes % 6.1 % (1.7-9.3); Neutrophils # 2.7 K/mm3 (1.8-7.8); Neutrophils % 56.9 % (37.0-80.0); Platelet Count 277 K/mm3 (142-424); Red Blood Count 4.23 M/mm3 (4.20-5.40); Red Cell Distribution Width 13.9 % (11.5-17.5); White Blood Count 4.8 K/mm3 (4.8-10.8)
[2023-11-20 08:36] LABS: Alanine Aminotransferase 18 U/L (12-78); Albumin Level 3.9 g/dl (3.5-5.0); Albumin/Globulin Ratio 1.6 (1.1-1.8); Alkaline Phosphatase 58 U/L (38-126); Anion Gap 8.8 mEq/L (5-15); Aspartate Amino Transferase 22 U/L (14-36); Bilirubin,Total 0.5 mg/dl (0.2-1.3); Blood Urea Nitrogen 27 mg/dl (7-17); Calcium 9.2 mg/dl (8.4-10.2); Carbon Dioxide 31 mmol/L (22.0-30.0); Chloride 103 mmol/L (98-107); Chol/HDL Ratio 3.9 (1-3.5); Cholesterol 205 mg/dl (140-200); Estimated Glomerular Filt Rate 51 ml/min (>60); GFR (African American) 62 ML/MIN (>60); Globulin 2.5 g/dL (1.3-3.2); Glucose 93 mg/dl (74-100); HDL Cholesterol 52 mg/dl (40-60); Potassium 3.8 mmoL/L (3.5-5.1); Sodium 139 mmol/L (136-145); Total Protein,Serum 6.4 g/dl (6.3-8.2); Triglycerides 138 mg/dl (30-150); VLDL Cholesterol 28 mg/dL (0-40)
[2023-11-20 09:10] LABS: Hemoglobin A1C 5.4 % (4.0-6.0)
[2023-11-20 10:01] LABS: 25-OH Vitamin D, Total 57.8 ng/mL (30-100)
[2023-11-20 10:25] LABS: Free T4 (Free Thyroxine) 1.22 ng/dl (0.78-2.19)
[2023-11-20 11:12] LABS: Direct LDL Cholesterol 112.13 mg/dL (100-129)
[2023-11-20 11:35] LABS: Thyroid Stimulating Hormone 4.78 uIU/mL (0.465-4.68)
[2023-11-20 12:12] LABS: Folate 7.54 ng/mL
[2023-11-20 21:43] LABS: Total Iron Binding Capacity 296 ug/dL (265-497)
[2023-11-20 22:29] LABS: Iron 99 ug/dL (37-170)
[2023-11-21 08:30] LABS: Prealbumin 32 mg/dL (10-36)
[2023-11-24 01:08] LABS: Vitamin B1 83.6 nmol/L (66.5-200.0)
[2023-11-26 15:21] LABS: Vitamin A 89.5 ug/dL (20.1-62.0)
[2023-12-08 15:43] LABS: Methylmalonic Acid 217 nmol/L (0-378)
== END 2023-11-20 23:59 | disposition home or self-care (01) ==
LOC: LAB 07:50
PROVIDERS: PCP Family Medicine; Visit Provider Physician Assistant
DX: E11.9 Type 2 diabetes mellitus without complications (principal); E78.5 Hyperlipidemia, unspecified; I10 Essential (primary) hypertension; Z91.89 Other specified personal risk factors, not elsewhere classified; Z90.3 Acquired absence of stomach [part of]; R89.8 Other abnormal findings in specimens from other organs, systems and tissues
CPT/HCPCS: 36415; 80050; 80053; 80061; 82306; 82746; 83036; 83540; 83550; 83921; 84134; 84425; 84439; 84443; 84590; 85025

== ENCOUNTER 2024-01-16 15:10 | Outpatient (CLI) | payer BC, SELFPAY ==
--- NOTE | 2024-01-16 15:14 | US_ITS ---
FINAL REPORT CLINICAL HISTORY: posterior left arm pain FINDINGS: Limited sonographic images of the posterior left arm were obtained. No soft tissue mass or fluid collection is identified. The muscular soft tissues show a normal echogenic pattern. IMPRESSION: Unremarkable exam. Reviewed, Interpreted and Dictated by Ricki Mera MD Transcribed by Asha Jefferson Authenticated and . [facility]
== END 2024-01-16 23:59 | disposition home or self-care (01) ==
LOC: RAD 15:11
PROVIDERS: PCP Family Medicine; Visit Provider Nurse Practitioner
DX: M77.9 Enthesopathy, unspecified (principal)
CPT/HCPCS: 76882

== ENCOUNTER 2024-01-22 16:35 | Outpatient (CLI) | payer BC, SELFPAY ==
--- NOTE | 2024-01-22 16:40 | XR_ITS ---
PROCEDURE INFORMATION: Exam: XR Left Elbow Exam date and time: 01/22/2024 4:41 PM Age: 58 years old Clinical indication: Pain; Elbow; Left; Additional info: Left elbow pain. States she hurt elbow in July, C/O pain TECHNIQUE: Imaging protocol: Radiologic exam of the left elbow. Views: 3 or more views. COMPARISON: US EXTREMITY LT LIMITED 01/16/2024 3:10 PM FINDINGS: Bones/joints: Normal. Soft tissues: Normal. IMPRESSION: No acute findings.
== END 2024-01-22 23:59 | disposition home or self-care (01) ==
LOC: RAD 16:36
PROVIDERS: PCP Family Medicine; Visit Provider Nurse Practitioner
DX: M25.522 Pain in left elbow (principal)
CPT/HCPCS: 73080

== ENCOUNTER 2024-02-18 14:02 | Emergency (ER) | payer BC, SELFPAY ==
[2024-02-18 14:42] VITALS: BP 120/70; PULSE 71; RESP 20; TEMP 36.7; O2SAT 98; BMI 31.8
[2024-02-18 14:49] LABS: Microscopic, Urine URINE MICROSCOPIC (MICROSCOPIC)
--- NOTE | 2024-02-18 14:59 | EXP.UTC ---
Discharge Plan Disposition Patient Disposition: Home, Self-Care Condition: Good Prescriptions Prescriptions: No Action Saxenda 3 mg/0.5 mL (18 mg/3 mL) pen injector 3 mg SQ ergocalciferol (vitamin D2) 1,000 unit tablet PO levothyroxine 125 mcg capsule 125 mcg PO DAILY omeprazole 20 mg capsule,delayed release(DR/EC) 20 mg PO DAILY metoprolol succinate 100 mg capsule,sprinkle,ER 24hr 100 mg PO DAILY vitamin B complex [B Complex-Vitamin B12] tablet 1 tab PO DAILY calcium polycarbophil [Fiber Therapy (ca polycarboph)] 625 mg tablet 1,250 mg PO DAILY tizanidine 4 mg capsule 4 mg PO HS biotin 10,000 mcg capsule 10,000 mcg PO DAILY losartan 100 mg tablet PO hydrochlorothiazide 25 mg tablet PO potassium 99 MG tablet 99 mg PO DAILY ondansetron 4 MG tablet,disintegrating 4 mg PO TIDP PRN (Reason: Nausea) 2 Days Qty: 6 0RF Referrals Follow up/Referrals: Vannessa Lopez [Primary Care Provider] - See instructions Activity Restrictions/Add. Instructions Additional Instructions/Restrictions: Stop the Cipro Make sure to drink plenty of fluids Follow up with your Family Doctor if symptoms persist or do not improve Straight to ER if any life threatening symptoms ? You was given an outpatient order for diarrhea panel, please collect specimen and bring back to outpatient lab then call back to the [facility] or follow up with family doctor for results ? Follow up with family doctor in the next 48-72 hours if no improvement or any worsening of symptoms Clinical Impressions Clinical Impression: Diarrhea Instructions Patient Instructions: Ciprofloxacin, Diarrhea Print Language Print Language: Grenadian Discharge ED Provider: Zee Yeh [place] [facility] [place] HPI General Stated complaint: diarrhea, stomach issues, headache Mode of Arrival: Ambulatory Source of Information: Patient Time Seen by Provider: 02/18/24 15:00 Description of Symptoms (Recalled from Triage Doc. by RN): UTI S/S (PT PUT HERSELF ON OLD ABX, THIS IS DAY 5), POSSIBLY DEHYDRATION, LOOSE STOOLS, AT NIGHT TIME GETS BLACKED OUT VISION AND DISORIENTED. VYAS AT TIMES HEENT Symptoms (Recalled from RN notes): Yes Resp Symptoms (Recalled from RN notes): No Skin Symptoms (Recalled from RN notes): No MS Symptoms (Recalled from RN notes): No Functional Status (Recalled from RN notes): WNL History of Present Illness Provider Complaint: Patient state that she was seen and put on Cipro for UTI and then her culture came back and they told her to stop it States she kept the medication then she started last week with symptoms again so she started taking the Cipro again since then she has been having diarrhea, feeling dizzy and light headed and at times feeling like her vision goes black then after holding onto stuff it comes back States that she was not sure if these may be side effects of the cipro or if she may have a bad UTI again so she came in to get checked Related Data Home Medications ?Medication ?Instructions ?Recorded ?Confirmed biotin 10,000 mcg capsule 10,000 mcg PO DAILY Diet supplement 02/05/18 11/07/20 calcium polycarbophil 625 mg 1,250 mg PO DAILY Diet supplement 02/05/18 11/07/20 tablet (Fiber Therapy (ca polycarbophil)) levothyroxine 125 mcg capsule 125 mcg PO DAILY thyroid 02/05/18 11/07/20 metoprolol succinate 100 mg 100 mg PO DAILY High blood pressure 02/05/18 11/07/20 capsule sprinkle, ext. release 24 hr omeprazole 20 mg capsule,delayed 20 mg PO DAILY GERD 02/05/18 11/07/20 release tizanidine 4 mg capsule 4 mg PO HS spasms 02/05/18 11/07/20 vitamin B complex (B 1 tab PO DAILY Diet supplement 02/05/18 11/07/20 Complex-Vitamin B12 tablet) potassium 99 mg tablet 99 mg PO DAILY Diet supplement 04/15/19 11/07/20 hydrochlorothiazide 25 mg tablet PO 06/17/19 11/07/20 losartan 100 mg tablet PO 06/17/19 11/07/20 ergocalciferol (vitamin D2) 1,000 tab PO 11/07/20 unit tablet liraglutide (weight loss) 3 mg/0.5 3 mg SQ 11/07/20 11/07/20 mL (18 mg/3 mL) subcut pen injector (Saxenda) Previous Rx's ?Medication ?Instructions ?Recorded ondansetron 4 mg disintegrating 4 mg PO TIDP PRN Nausea 2 days #6 09/03/21 tablet tabs Allergies Allergy/AdvReac Type Severity Reaction Status Date / Time From ZITHROMAX Allergy Unknown I-HIVES Uncoded 06/17/19 08:49 Penicillin Allergy Unknown I-HIVES Uncoded 06/17/19 08:49 SULFA (sulfonamide) Allergy Unknown S-DIFF. Uncoded 06/17/19 08:49 BREATHING Worker's Comp Is this a Worker's Comp case?: [facility] Disclaimer: The information contained in this section may have been updated after the patient was seen, as this information can be updated by other users. Social History Smoking Status: Never smoker alcohol intake: never current occupational status: employed Travel in the last 8 weeks: None household members: spouse housing: house ROS Obtained: Yes All systems reviewed & no additional complaints except as documented and Yes Systems reviewed as appropriate & no additional complaints except as documented Constitutional Constitutional: Reports system reviewed and no additional complaints, except as documented, Reports as per HPI and Reports headache(s) (on and off with hx of migraines) ENT Ears, Nose, Mouth, and Throat: Reports system reviewed and no additional complaints, except as documented, Reports as per HPI, Reports dizziness and Reports headache(s) (on and off with hx of migraines) Cardiovascular Cardiovascular: Reports system reviewed and no additional complaints, except as documented and Reports as per HPI Respiratory Respiratory: Reports system reviewed and no additional complaints, except as documented and Reports as per HPI Gastrointestinal Gastrointestingal: Reports system reviewed and no additional complaints, except as documented, as per HPI, cramping and diarrhea Genitourinary Female Genitourinary: Reports system reviewed and no additional complaints, except as documented, Reports as per HPI, Reports dysuria, Reports urinary frequency and Reports urinary urgency Musculoskeletal Musculoskeletal: Reports system reviewed and no additional complaints, except as documented and Reports as per HPI Integumentary/Breasts Skin/Breast: Reports system reviewed and no additional complaints, except as documented and Reports as per HPI Neurologic Neurologic: Reports dizziness and Reports headache(s) (on and off with hx of migraines) Physical Exam General General appearance: alert and in no apparent distress Head Head exam: atraumatic and normocephalic Eye Eye exam: Present normal appearance, PERRL and EOMI ENT ENT exam: Present normal exam, normal oropharynx, mucous membranes moist and TM's normal bilaterally Respiratory Respiratory exam: Present normal lung sounds bilaterally; Absent respiratory distress or wheezes Cardiovascular Cardiovascular exam: Present regular rate, normal rhythm and normal heart sounds Abdominal Exam Abdominal exam: Present soft and normal bowel sounds; Absent distention, tenderness or guarding Neurological Exam Neurological exam: Present alert, oriented X3 and normal gait Medical Decision Making Medical Records Screening: Per USPSTF and CDC recommendations, given the prevalence of disease in our region, it is our hospital?s policy to screen for HIV and viral Hepatitis for all patients aged 18 and over and those with ongoing risk factors. Nash Inquiry Pt receiving controlled substance: No Nash was queried for this patient: No Vital Signs: 02/18/24 14:42 Temperature 98.0 F Temperature Source Oral Pulse Rate [Left Radial] 71 Respiratory Rate 20 Blood Pressure [Left Arm] 120/70 Blood Pressure Mean [Left Arm] 86 02 Sat by Pulse Oximetry 98 Lab Data Lab results reviewed: Yes I reviewed the patient's lab results. Orders (Tests/Meds): ORDERS Category Date Time Status UA [Urinalysis and Microscopic] Stat Lab 02/18/24 14:31 Received Medical Decision Narrative: Discussed with patient and due to complaints of feeling like she was going to black out and a couple times of feeling disoriented and dizzy that she be transferred to the ED for further work up and evaluation and she declined States that she feels fine now and wants to get her urine checked and she will follow up with her PCP if she continues to have symptoms Again spoke with patient about transfer to the ED and she declined States that she feels fine right now wanted to get urine checked and she will stop the Cipro in case that is causing her symptoms and follow up with PCP tomorrow or Friday if she is still having symptoms
[2024-02-18 15:00] VITALS: BP 117/68; PULSE 68
[2024-02-18 15:01] VITALS: BP 102/72; BP 126/77; PULSE 70; PULSE 77
[2024-02-18 15:31] LABS: Appearance,Urine CLEAR (Clear); Bilirubin,Urine Negative (Negative); Blood, Urine Negative (Negative); Color,Urine YELLOW (Yellow); Glucose,Urine (UA) Negative (Negative); Ketones,Urine Negative (Negative); Leukocyte Esterase,Urine Negative (Negative); Nitrate,Urine Negative (Negative); Protein,Urine Negative (Negative); Specific Gravity, Urine 1.025 (1.005-1.030); Urobilinogen,Urine 0.2 EU/dl (0.2)
[2024-02-18 16:04] VITALS: BP 102/72; PULSE 77; RESP 20; TEMP 36.7
[2024-02-18 16:36] LABS: Other Crystals,Urine 1+ /lpf; WBC,Urine Occasional #/hpf (0-3)
== END 2024-02-18 16:21 | disposition home or self-care (01) ==
PROVIDERS: Emergency Provider Nurse Practitioner; PCP Family Medicine
DX: R19.7 Diarrhea, unspecified (principal); R42 Dizziness and giddiness; H53.9 Unspecified visual disturbance
CPT/HCPCS: 81001; 99212; G0381

== ENCOUNTER 2024-02-19 08:19 | Outpatient (CLI) | payer BC, SELFPAY ==
[2024-02-19 08:25] LABS: Adenovirus F 40/41, stool Not Detected (NotDetected); Astrovirus Not Detected (NotDetected); Campylobacter Not Detected (NotDetected); Clostridium Difficile A/B, PCR Not Detected (NotDetected); Cryptosporidium Not Detected (NotDetected); Cyclospora Cayetanesis Not Detected (NotDetected); Entamoeba histolytica Not Detected (NotDetected); Enteroaggregative E coli Not Detected (NotDetected); Enteropathogenic E coli Not Detected (NotDetected); Enterotoxigenic E coli Not Detected (NotDetected); Giardia lamblia Not Detected (NotDetected); Norovirus Not Detected (NotDetected); Plesimonas Shigalloides, PCR Not Detected (NotDetected); Rotavirus A Not Detected (NotDetected); Salmonella, PCR Not Detected (NotDetected); Sapovirus Not Detected (NotDetected); Shiga-like toxin E coli Not Detected (NotDetected); Shigella Enterovasive E coli Not Detected (NotDetected); Vibrio Cholerae Not Detected (NotDetected); Vibrio, PCR Not Detected (NotDetected); Yersinia Entercolitica, PCR Not Detected (NotDetected)
== END 2024-02-19 23:59 | disposition home or self-care (01) ==
LOC: LAB 08:20
PROVIDERS: PCP Family Medicine; Visit Provider Nurse Practitioner
DX: R19.7 Diarrhea, unspecified (principal)
CPT/HCPCS: 87507

== ENCOUNTER 2025-01-21 07:53 | Outpatient (CLI) | payer BC, SELFPAY ==
--- OUTSIDE RECORDS SUMMARY | 2022-05-01 11:50 | XMS_ITS | Encounter Summary ---
[facility] Address [address] [place] [address] Care Team Providers Care Senior Safety Management Consultant Name Role Phone Provider, No Known Primary Care Provider Unavail able Encounter Details Date Type Department Care Team (Late st Contact Info) Description 05/01/2022 10:50 AM EST Hospital Encounter [facility]UL[facility] MEDICINE [address] [place] [id number] Social History Tobacco Use Types Packs/Day Years Used Date Smoking Tobacco: Former Smokeless Tobacco: Never Alcohol Use Standard Drinks/Week Comments Yes 0 (1 standard drink = 0.6 oz pur e alcohol) AUDIT-C Answer Date Recorded Q1: How often do you have a drink containing alc ohol? Monthly or less 03/30/2020 Q2: How many drinks containi ng alcohol do you have on a typical day when you are drinking? 1 or 2 03/30/2020 Frequency of Binge Drinking Not on file 03/21 Abuse Screen Answer Date Recorded Unsafe at Home or Work/School Not on file Feels Threatened by Someone? Not on file 02/2023 Does Anyone Keep You from Co ntacting Others or Doint Things Outside the Home? Not on file 01/29/2023 Physical Sign of Abuse Present Not on file 1 Housing Stability Answer Date Recorded Current Living Arrangements Not on file 01/19 Potentially Unsafe Housing Conditions Not on da e 01/29/2023 Family and Community Support Answer Mamadou e Recorded Help with Day-to-Day Activities Not on file 01/29/2023 Lonely or Isolated Not on file 01/29/2023 Employment Answer Date Recorded Do you want help finding or keeping work or a susie b? Not on file 01/29/2023 Disabilities Answer Date Recorded Concentrating, Remembering, or Making Decisions Difficulty Not on file 01/29/2023 Doing Errands Independently Difficulty Not on fi le 01/29/2023 Education Answer Date Recorded Help with school or training? Not on file Preferred Language Not on file 01/29/2023 Comments No Sex and Gender Information Value Date Recorded Sex Assigned at Not on file Legal Sex Female 7:59 AM EDT Gender Identity Not on file Sexual Orientation Not on file documented as of this encounter Plan of Treatment Not on file documented as of this encounter Procedures Procedure Name Priority Date/Time Associated Diagnosis Comments XR CHEST PA AND LATERAL Routine 05/01/2022 11:01 AM EST Shortness of breath documented in this encounter Results * XR Chest PA & Lateral (05/01/2022 11:01 AM EST) Anatomical Region Laterality Modality Body, Chest N/A Radiographic Rosmery ging Narrative 05/01/2022 11:18 AM EST Panel chest x-rays obtained Cardiac silhouette is within normal limits of size CT ratio is 14 x 30 No effusions, infiltrates, or consolidation There are a few parenchymal nodules that appear calcified us Pietro Vergara MD IMG DIAGNOSTIC IMAGING ORDERABLES Final Result documented in this encounter Visit Diagnoses Not on filedocumented in this encounter Care Teams Senior Safety Management Consultant Relationship Specialty Start Date End Date Provider, [place] [address] PCP - General 01/09/17 09/29/22 documented as of this encounter
--- OUTSIDE RECORDS SUMMARY | 2024-12-15 17:00 | XMS_ITS | Encounter Summary ---
Author Organization [facility] Address [address] [place] [address] Care Team Providers Care Wood Tool Maker Name Role Phone PaulinomarioLisa APRN Primary Care Provider [phone] Encounter Details Date Type Department Care Team (Late st Contact Info) Description 12/15/2024 5:00 PM EDT Office Visit [facility] [address] [place] [address] Karina Jeffers 800 [facility] [address] [place] [address] Frequent headaches (Primary Dx); Pain in both lower extremities Social History Tobacco Use Types Packs/Day Years Used Date Smoking Tobacco: Former Smokeless Tobacco: Never Comments Unknown Sex and Gender Information Value Date Recorded Sex Assigned at Not on file Legal Sex Female 8:32 PM EDT Gender Identity Not on file Sexual Orientation Not on file documented as of this encounter Miscellaneous Notes * Progress Notes - Karina Jeffers - 12/15/2024 5:00 PM EDT Acupuncture Visit Patient: Koki Cunningham Date: 12/15/2024 No chief complaint on file. Outpatient Last Treatment How much did the last treatment help your symptoms?: Improvement after last visit., No ill effects. Patient presents for follow-up with chief complaint of frequent headaches, along with secondary complaint of bilateral lower extremity pain. Patient reports that their headaches continue to be well-controlled with regular acupuncture overall, but that they do still occasionally have severe headaches that take multiple doses of rescue medication. Patient reports that they've had one major headache since last session, which was last week after a day on a boat in the sun and wind. Patient reports no light or sound sensitivity, nausea or vomiting, or vertigo with their headaches. Patient also reports ongoing cramping in the lower legs at night, along with some pain in the feet after walking more frequently and in different shoes while on vacation. Patient reports that they continue under PCP and specialist provider managed care for all health concerns and requests to continue acupuncture atthis time. Total needle insertion time: 30 minutes. Procedures: Warsaw Acupuncture Consent: Verbal consent Procedure Warsaw Size: 1 Inch Needle Points: GIL, SJ, ST, GB, LV Needle GIL Points: [address]: 36 Bilateral Needle SJ: 3 Bilateral, 5 Bilateral Needle GB: 34 Bilateral, 40 Bilateral, 41 Bilateral Needle LV: 7 Bilateral, 4 Bilateral, 3 Bilateral Plan Encounter Diagnoses Name Primary? Frequent headaches Yes Pain in both lower extremities 2-4 weeks Karina Jeffers documented in this encounter Plan of Treatment Upcoming Encounters Date Type Department Care Team (Late st Contact Info) Description 02/17/2025 5:00 PM EDT Office Visit [facility] [address] [address] Karina Jeffers 800 [facility] Shannen Cas[address] [address] 02/28/2025 2:00 PM EST Office Visit [facility] 800 [facility] [place] [address] Pete Green 800 [facility] [address] [place] [address] documented as of this encounter Visit Diagnoses Diagnosis Frequent headaches- Primary Pain in both lower extremities documented in this encounter Additional Health Concerns Assessment Noted Time A Body Mass Index follow-up plan has been documented for the patient 12/15/2024 3:37 PM EDT documented as of this encounter Care Teams Wood Tool Maker Relationship Specialty Start Date End Date Lisa De La Fuente APRN [facility] [place] [address] PCP - General 09/01/20 documented as of this encounter
--- OUTSIDE RECORDS SUMMARY | 2025-01-06 15:00 | XMS_ITS | Encounter Summary ---
Author Organization Address [address] [place] [address] Care Team Providers Care Garnett Fixer Name Role Phone PaulinomarioLisa APRN Primary Care Provider [phone] Encounter Details Date Type Department Care Team (Late st Contact Info) Description 01/06/2025 3:00 PM EDT Office Visit [facility] [address] [place] [address] Karina Jeffers 800 [facility] [address] [place] [address] Frequent headaches (Primary Dx); Pain in both [...] * Progress Notes - Karina Jeffers - 01/06/2025 3:00 PM EDT Acupuncture Visit Patient: Koki Cunningham Date: 01/06/2025 No chief complaint on file. Outpatient Last Treatment How much did the last treatment help your symptoms?: Improvement after last visit., No ill effects. Patient presents for follow-up with chief complaint of frequent headaches, along with secondary complaint of bilateral lower extremity pain. Patient reports that their headaches continue to be well-managed with regular acupuncture, having had no major headaches and only a handful of mild headaches since last session. Patient reports that they continue to experience night-time cramping in both legs, left worse than right. Patient reports that their primary care provider gave them medication for restless legs, but they've not taken it yet. Patient reports that the cramps will sometimes happen multiple times in one night, requiring them to get up and walk around to get the calves to loosen up enough to be able to go back to sleep. Provider recommended talking to primary care about possibly checking electrolyte panel, as cramps have persisted for several months. Patient reports that they continue under PCP and specialist provider managed care for all health concerns and requests to continue acupuncture at this time. Total needle insertion time: 30 minutes. Procedures: Dora Acupuncture Consent: Verbal consent Procedure Dora Size: 1 Inch Needle Points: SJ, GIL, SP, ST, GB, LV, KI Needle GIL Points: [address]: 36 Bilateral Needle SP: 9 Bilateral, 6 Bilateral Needle KI: 3 Bilateral Needle SJ: 3 Bilateral, 5 Bilateral Needle GB: 34 Bilateral, 40 Bilateral Needle LV: 7 Bilateral, 4 Bilateral Plan Encounter Diagnoses Name Primary? Frequent headaches Yes Pain in both lower extremities 2-4 weeks Karina Jeffers documented in this encounter Plan of Treatment Upcoming Encounters Date Type Department Care Team (Late st Contact Info) Description 02/17/2025 5:00 PM EDT Office Visit [facility] [address] [phone] Karina Jeffers 800 [facility] Shannen Famson [facility] [address] [place] [address] 02/28/2025 2:00 PM EST Office Visit [facility] 800 [facility] [place] [phone] Pete Green 800 [facility] Shannen Tong [facility] [address] [place] [address] documented as of this encounter Visit Diagnoses Diagnosis Frequent headaches- Primary Pain in both lower extremities documented in this encounter Additional Health Concerns Assessment Noted Time A Body Mass Index follow-up plan has been documented for the patient 01/06/2025 3:35 PM EDT documented as of this encounter Care Teams Garnett Fixer Relationship Specialty Start Date End Date Lisa De La Fuente APRN [facility] [place] [address] PCP - General 09/01/20 documented as of this encounter
--- OUTSIDE RECORDS SUMMARY | 2025-01-21 07:55 | XMS_ITS | Clinical Summary ---
Author Organization [facility] Address [address] [place] [address] Care Team Providers Care Design Engineering Specialist Name Role Phone Lisa De La Fuente RAMEZ Primary Care Provider [phone] Allergies Active Allergy Reactions Criticality Noted Date Comments Azithromycin Unknown - Patient st ates they do not know rxn details Low 05/01/2017 Penicillins Unknown - Patient st ates they do not know rxn details Low 05/01/2017 Sulfacetamide Unknown - Patient st ates they do not know rxn details Low 05/01/2017 Medications omeprazole (PriLOSEC) [address] capsule 11/20/2016 Active metoprolol succinate XL (Toprol-XL) 100 MG 24 hr tablet 01/22/2017 Active levothyroxine (Synthroid, Levoxyl) 125 MCG tablet 11/24/2016 Active ergocalciferol (Vitamin D-2) 1.25 MG (06602 UT) capsule 05/01/2017 Active ergocalciferol (Vitamin D-2) 1.25 MG (47177 UT) capsule 11/25/2016 Active cyanocobalamin (Vitamin B-12) 100 MCG tablet 05/01/2017 Active butalbital-acetami nophen-caffeine 50-325-40 MG tablet 01/29/2017 Active Aspirin Buf,CaCarb-MgCarb- MgO, 81 MG tablet 05/01/2017 A ctive glucose blood (OneTouch Verio) test strip 11/13/2016 Active Encounters Date Type Department Care Team Description 01/06/2025 3:00 PM EDT Office Visit [facility] [address] [address] Karina Jeffers Frequent headaches (Primary Dx); Pain in both lower extremities 01/06/2025 Travel 12/15/2024 5:00 PM EDT Office Visit [facility] [address] [address] Karina Jeffers Frequent headaches (Primary Dx); Pain in both lower extremities 12/15/2024 Travel 10/27/2024 5:00 PM EDT Office Visit [facility] [address] [address] Karina Jeffers Frequent headaches (Primary Dx); Pain in both lower extremities 10/27/2024 Travel from Last 3 Months Social History Tobacco Use Types Packs/Day Years Used Date Smoking Tobacco: Former Smokeless Tobacco: Never Comments Unknown Sex and Gender Information Value Date Recorded Sex Assigned at Not on file Legal Sex Female 8:32 PM EDT Gender Identity Not on file Sexual Orientation Not on file Last Filed Vital Signs Vital Sign Reading Time Taken Comments Blood Pressure 117/77 09/20/2021 11:22 AM EDT Pulse 79 09/20/2021 11:22 AM EDT Temperature - - Respiratory Rate - - Oxygen Saturation - - Inhaled Oxygen Concentration - - Weight 118 kg (261 lb) 05/01/2017 1:33 PM EST Height 165.1 cm (5' 5 ) 05/01/2017 1:33 PM EST Body Mass Index 43.43 05/01/2017 1:33 PM EST Plan of Treatment Upcoming Encounters Date Type Department Care Team (Late st Contact Info) Description 02/17/2025 5:00 PM EDT Office Visit [facility] [address] [address] Karina Jeffers 800 [facility] Shannen Tong [facility] [address] [place] [address] 02/28/2025 2:00 PM EST Office Visit [facility] [address] [address] Pete Green [address] [place] [address] Health Maintenance Due Date Last Done Comments [facility]-Depression Screening 1966 [facility]-HIV Screening 1966 [facility]-Hepatitis C Screening 1966 [facility]-/Child/Adol SDOH Screenings 1966 [facility]-FRFPS-40 Vaccine (#1) 1971 [facility]- SDOH Screenings 1984 [facility]-Adult SDOH Screenings 1984 [facility]-Hepatitis B Vaccines (1 of 3 - 19+ 3-dose series) 1985 [facility]-Pap Smear 1987 [facility]-Cervical Cancer Screening 1996 [facility]-HPV/Cotest 1996 [facility]-DTaP,Tdap,and Td Vaccine s (1 - Tdap) 06/25/1996 06/24/1996 CT Colonography 2011 Colonoscopy 2011 FIT-DNA 2011 FIT 2011 FOBT 2011 Sigmoidoscopy 2011 [facility]-Colorectal Cancer Screening 2011 [facility]-Breast Cancer Screening 2016 [facility]-Pneumococcal Vaccine: 50 + Years (1 of 1 - PCV) 2016 [facility]-Zoster Vaccines (1 of 2) 2016 [facility]-Influenza Vaccine (#1) 2024 HPV Vaccines Aged Out No longer eligi ble based on patient's age to complete this topic [facility]-HIB Vaccines Aged Out No longer e ligible based on patient's age to complete this topic [facility]-Hepatitis A Vaccines Aged Out No longer eligible based on patient's age to complete this topic [facility]-IPV Vaccines Aged Out No longer e ligible based on patient's age to complete this topic [facility]-Rotavirus Vaccines Aged Out No lo nger eligible based on patient's age to complete this topic Insurance E JUAN ALBERTO VERDIN [id number] KUMAR Care Teams Design Engineering Specialist Relationship Specialty Start Date End Date Lisa De La Fuente APRN [facility] [place], [place] [id number] PCP - General 09/01/20
--- OUTSIDE RECORDS SUMMARY | 2025-01-21 07:55 | XMS_ITS | Encounter Summary ---
Author Organization [facility] Address [address] [place] [address] Care Team Providers Care Unified Communications Architect Name Role Phone Lisa De La Fuente COSTUMER Primary Care Provider [phone] Encounter Details Date Type Department Care Team (Late st Contact Info) Description 09/04/2020 Orders Only Meghan Mayer [facility] [address] [place] [address] Nadia Clements, COSTUMER [address] [place] [address] Social History Tobacco Use Types Packs/Day Years Used Date Smoking Tobacco: Former Comments Unknown Sex and Gender Information Value Date Recorded Sex Assigned at Not on file Legal Sex Female 8:32 PM EDT Gender Identity Not on file Sexual Orientation Not on file documented as of this encounter Plan of Treatment Upcoming Encounters Date Type Department Care Team (Late st Contact Info) Description 02/17/2025 5:00 PM EDT Office Visit [facility] [address] [address] Karina Jeffers 800 [facility] Ran [facility] [address] [place] [address] 02/28/2025 2:00 PM EST Office Visit [facility] [address] [address] Pete Green [address] [place] [address] [address] [place] [address] documented as of this encounter Visit Diagnoses Not on filedocumented in this encounter Care Teams Unified Communications Architect Relationship Specialty Start Date End Date Lisa De La Fuente APRN [address] [place] [address] PCP - General 09/01/20 documented as of this encounter
--- OUTSIDE RECORDS SUMMARY | 2025-01-21 07:55 | XMS_ITS | Clinical Summary ---
Author Organization [facility] Address [address] [place] [address] Care Team Providers Care Steam Conditioner Operator Name Role Phone Vannessa Lopez DO Primary Care Provider [phone] Allergies Active Allergy Reactions Criticality Noted Date Comments Elemental Sulfur Swelling,Rash Low 01/09/2017 Penicillins Rash Low 01/09/2017 Sulfa Antibiotics Unknown - Low Severity 2023 Azithromycin Rash Low 01/09/2017 Medications levothyroxine (SYNTHROID, LEVOTHROID) 125 MCG tablet 0 7 Active metoprolol succinate XL (TOPROL-XL) 100 MG 24 hr tablet 0 7 Active omeprazole (priLOSEC) 20 MG capsule 0 7 Active B Complex Vitamins (B-COMPLEX/B-1 2 PO) Take by mouth. Activ e tiZANidine (ZANAFLEX) 4 MG tablet 0 8 Active multivitamin with minerals tablet tablet Take 1 tablet by mouth Daily. Active BIOTIN 5000 PO Take by mouth. Active triamterene-hy drochlorothiaz raul (MAXZIDE-25) 37.5-25 MG per tablet Take 1 tablet by mouth Daily. 2 Active hydrocortisone 2.5 % ointment Apply 1 application topically to the appropriate area as directed 2 (Two) Times a Day. Active ubrogepant (UBRELVY) 50 MG tablet Active hydroCHLOROthi azide (HYDRODIURIL) 25 MG tablet 3 Active Mounjaro 7.5 MG/0.5ML solution pen-injector INJECT 7.5MG SUBCUTANEOUSLY ONCE A WEEK FOR 28 DAYS 3 Active losartan (COZAAR) 100 MG tablet TAKE 1 TABLET BY MOUTH ONCE DAILY DIRECTED FOR 90 DAYS 3 Active nabumetone (RELAFEN) 750 MG tablet TAKE 1 TABLET BY MOUTH TWICE DAILY NEEDED FOR JOINT PAIN 60 tablet 2 4 Active Ergocalciferol (VITAMIN D2 PO) Take by mouth. 1250 mcg- 50,000 units- 1 tablet twice a week Active Tirzepatide (Mounjaro) 10 MG/0.5ML solution pen-injector pen Inject 0.5 mL under the skin into the appropriate area as directed 1 (One) Time Per Week. Active Active Problems Problem Noted Date Diagnosed Date FLEMING (dyspnea on exertion) 05/01/2022 Former smoker (Stopped 2011) 05/01/2022 GUERO on CPAP 05/01/2022 Obesity, Class II, BMI 35-39.9 05/01/2022 History of bariatric surgery (Gastric sleeve) Immunizations Immunization Administration Dates Next Due Td (TDVAX) 06/24/1996 Family History Medical History Relation Name Comments Cancer Brother Hypertension Brother Irritable bowel syndrome Brother Migraines Brother Skin cancer Brother María's thyroiditis Daughter Skin cancer Father Bone cancer Maternal Grandfather Heart attack Maternal Grandfather Lung cancer Maternal Grandfather Prostate cancer Maternal Uncle Stroke Maternal Uncle Arthritis Mother Diabetes Mother Hypertension Mother Prostate cancer Paternal Grandfather Stroke Paternal Grandfather Heart attack Paternal Grandmother Hypertension Paternal Grandmother Stroke Paternal Grandmother María's thyroiditis Sister Lupus Sister Migraines Sister Raynaud syndrome Sister Breast cancer Neg Hx Colon cancer Neg Hx Ovarian cancer Neg Hx Uterine cancer Neg Hx Relation Name Status Comments Brother Daughter Father Alive Maternal Grandfather Maternal Uncle Mother Alive Paternal Grandfather Paternal Grandmother Sister Social History Tobacco Use Types Packs/Day Years Used Date Smoking Tobacco: Former Smokeless Tobacco: Never Tobacco Cessation:Counseling Given: Not Answered Alcohol Use Standard Drinks/Week Comments Yes 0 [...] Sign Reading Time Taken Comments Blood Pressure 122/70 03/07/2023 1:57 PM EST Pulse 55 03/07/2023 1:57 PM EST Temperature 36.4 C (97.5 F) 03/07/2023 1:57 PM EST Respiratory Rate 18 05/01/2022 10:5 7 AM EST Oxygen Saturation 94% 03/07/2023 1:5 7 PM EST room air at rest Inhaled Oxygen Concentration - - Weight 93.9 kg (207 lb) 03/07/2023 1:57 PM EST Height 165.1 cm (5' 5 ) 03/07/2023 1:57 PM EST Body Mass Index 34.45 03/07/2023 1:57 PM EST Plan of Treatment Health Maintenance Due Date Last Done Comments PAP SMEAR 1987 MAMMOGRAM 2006 TDAP/TD VACCINES (2 - Tdap) 06/24/2006 06/24/1996 COLOGUARD 2011 COLON CANCER SCREENING 5 YEAR SIGMOIDOSCOPY 2011 COLONOSCOPY 2011 COLORECTAL CANCER SCREENING 2011 CT COLONOGRAPHY 2011 FECAL OCCULT BLOOD TEST 2011 FIT Testing (1 year) 2011 Pneumococcal Vaccine 50+ (1 of 1 - PCV) 2016 ZOSTER VACCINE (1 of 2) 2016 ANNUAL PHYSICAL 01/09/2017 HEPATITIS C SCREENING 01/09/2017 Annual Gynecologic Pelvic and Breast Exam 2021 03/30/2020 INFLUENZA VACCINE 11/19/2024 Insurance [employer] Care Teams Steam Conditioner Operator Relationship Specialty Start Date End Date Vannessa Lopez DO [facility] [place] [address] PCP - General Family Medicine 09/30/22
--- OUTSIDE RECORDS SUMMARY | 2025-01-21 07:55 | XMS_ITS | Encounter Summary ---
Author Organization [facility] Address [address] [place] [address] Care Team Providers Care Squeegee Tender Name Role Phone Paulinomario [place] Alexandre APRN Primary Care Provider [phone] Encounter Details Date Type Department Care Team (Latest Contact Info) Description 01/06/2025 Travel Social History Tobacco Use Types Packs/Day Years [...] Description 02/17/2025 5:00 PM EDT Office Visit [facility] [address] [facility] [place] [phone] Karina Jeffers [address] [facility] [address] [place] [address] 02/28/2025 2:00 PM EST Office Visit [facility] [address] [facility] [place] [phone] Pete Green [address] [facility] [address] [place] [address] documented as of this encounter Visit Diagnoses Not on filedocumented in this encounter Additional Health Concerns Assessment Noted Time A Body Mass Index follow-up plan has been documented for the patient 01/06/2025 3:35 PM EDT documented as of this encounter Care Teams Squeegee Tender Relationship Specialty Start Date End Date Lisa De La Fuente APRN [address] [place] [address] PCP - General 09/01/20 documented as of this encounter
--- OUTSIDE RECORDS SUMMARY | 2025-01-21 07:55 | XMS_ITS | Encounter Summary ---
Author Organization [facility] Address [address] [place] [address] Care Team Providers Care Lollypop Machine Operator Name Role Phone Paulinomario [place] Alexandre APRN Primary Care Provider [phone] Encounter Details Date Type Department Care Team (Latest Contact Info) Description 12/15/2024 Travel Social History Tobacco Use Types Packs/Day [...] Description 02/17/2025 5:00 PM EDT Office Visit [facility] [address] [facility] [place] [phone] Karina Jeffers [address] [facility] [address] [place] [address] 02/28/2025 2:00 PM EST Office Visit [facility] [address] [facility] [address] [place] [phone] Pete Green [address] [facility] [address] [place] [address] documented as of this encounter Visit Diagnoses Not on filedocumented in this encounter Additional Health Concerns Assessment Noted Time A Body Mass Index follow-up plan has been documented for the patient 12/15/2024 3:37 PM EDT documented as of this encounter Care Teams Lollypop Machine Operator Relationship Specialty Start Date End Date Lisa De La Fuente APRN [address] [place] [address] PCP - General 09/01/20 documented as of this encounter
--- OUTSIDE RECORDS SUMMARY | 2025-01-21 07:56 | XMS_ITS | Data Portability ---
Author Organization [facility] JESSE Duke [employer] CLOSED Address [address] [place] [address] Care Team Providers Care Service Center Supervisor Name Role Phone JAYLEEN HAYES Primary Care Provider [phone] MARGARITA UMANA [employer] Supervisor Assessment No assessment recorded. Plan of Treatment Reminders Order Date Submit Date Provider Last Modified By Organization Details Last Modified Time Details Appointments FOLLOW UP DAK 2024 11:30A M MARGARITA MCCLOUD MD Not available Not available Not available Lab surgical pathology study 2023 024 [facility], [facility] [place], [address], 07/28/2023 12:58:24 Referral None recorded. Procedures None recorded. Surgeries None recorded. Imaging None recorded. Medication Orders None recorded. Patient TargetsNo targets recorded. Patient Instructions Encounter Date Encounter Id Patient Instructions Last Modified By Organization Details Last Modified Time 07/21/2024 [id number] Recommended returning to clinic in 6 months for FBSE Not available 07/21/2024 10:32:01 Reason for Referral None Reported. Results Created Date Observation Date Name Description Value Unit Range Abnormal Flag Note LastModifiedBy Organization Detail LastModifiedTime Result Notes None recorded. Problems Name Problem SNOMED Code Status Onset Date Resolution Date Notes Provider Name and Address Organization Details Recorded Time Disorder of digestive system Active 2014 From Automated Load;Provi brisa: Triston Solomon;Statu s: Active Not Available [facility] 6 01:44:14 Abdominal bloating 735689151 Active 2014 From Automated Load;Provi brisa: Triston Solomon;Statu s: Active Not Available [facility] 6 01:44:14 Diarrhea 69503632 Active 2014 From Automated Load;Provi brisa: Triston Solomon;Statu s: Active Not Available [facility] 6 01:44:14 Tendernes s of left lower quadrant of abdomen 391688879 Active 2014 From Automated Load;Provi brisa: Tritson Solomon;Statu s: Active Not Available [facility] 6 01:44:14 History of malignant neoplasm of skin 515942087 Active 2023 Mariam hamlin [facility] 4 10:09:17 Problem Notes None recorded. Procedures Surgical History Date Name Laterality Status Provider Name and Address Organization Details Recorded Time 5 DAK - Cryo AK completed Mariam Sotomayor [facility] 07/21/2024 10:36:35 4 DAK - Cryo AK completed Celestina Marcelo [facility] 01/27/2024 15:53:17 4 DAK - Cryo AK completed Mariam Sotomayor [facility] 07/23/2023 10:15:42 4 DAK - Biopsy, Tangential completed Mariam Sotomayor [facility] 07/23/2023 10:15:39 3 DAK - ED&C; trunk,arm,leg completed Mariam Sotomayor [facility] 03/25/2023 09:12:52 Imaging Results None recorded. Procedure Notes None recorded. Medical Equipment None Reported. Allergies Allergen ID Allergen Name Allergen Category Reaction Reaction Severity Criticality Documentation Date Start Date Code Code System Note Provider Name and Address Organization Details Recorded Time 893649 Substance with sulfonami de structure and antibacte rial mechanism of action (substanc e) medicatio n Not available Not available Not available 03/14/20162014 80202 8003 SNOMED Comme nt: Creat ed By: Crys Wilcox Creat ed Date: 03/30 2:24: 20 PM; Not Available [facility] 6 12:01:18 [id number] azithromy dewayne medicatio n Not available Not available Not available 03/14/20162014 61386 RxNorm Comme nt: Creat ed By: Crys Bolivar; Creat ed Date: 03/30 2:24: 28 PM; [facility] 08:06:19 [id number] Product containin g penicilli n (product) medicatio n Not available Not available Not available 03/15/20162014 75742 8001 SNOMED Comme nt: Creat ed By: Crys Bolivar; Creat ed Date: 03/30 2:23: 57 PM; Not Available [facility] 6 04:05:46 [id number] Zithromax medicatio n Not available Not available Not available 03/27/[address] [facility] [place] 08:06:29 Medications Name Sig Start Date Stop Date Status Note LastModified by Organization Details LastModified Time tizanidin e 4 mg tablet Take 1 tablet every 6 hours by oral route. 07/21 completed Not Available Not Available Not Available rizatript an 10 mg tablet Take by oral route. 07/21 completed Not Available Not Available Not Available metoprolo l succinate ER 100 mg tablet,ex tended release 24 hr Take 1 tablet every day by oral route. active Not Available Not Available No t Available potassium 99 mg tablet Take by oral route. active Not Available Not Available No t Available levothyro xine 125 mcg tablet Take 1 tablet every day by oral route. active Not Available Not Available No t Available triamtere ne 37.5 mg-hydroc hlorothia zide 25 mg tablet Take 1 tablet every day by oral route. active Not Available Not Available No t Available omeprazol e 20 mg capsule,d elayed release Take 1 capsule every day by oral route. 01/26 completed Not Available Not Available Not Available hydrocort isone 2.5 % topical ointment APPLY A THIN LAYER TO THE AFFECTED AREA(S) BY TOPICAL ROUTE 2 TIMES PER DAY active Not Available Not Available No t Available losartan 100 mg tablet Take 1 tablet every day by oral route. active Not Available Not Available No t Available aspirin 03/27 completed Medicati on Descript ion: aspirin; refills: 0 Not Available Not Available Not Available levothyro xine 03/27 completed Medicati on Descript ion: levothyr oxine; refills: 0 Not Available Not Available Not Available omeprazol e 03/27 completed Medicati on Descript ion: omeprazo le; refills: 0 Not Available Not Available Not Available biotin active Not Available Not Availa ble Not Available metoprolo l succinate 03/27 completed Medicati on Descript ion: metoprol ol; Route:or al; refills: 0 Not Available Not Available Not Available metformin 03/27 completed Alt Frequenc y: with food;Med ication Descript ion: metformi n; Dosage:1 ; refills: 5; Quantity :60 Not Available Not Available Not Available Butalbita l-APAP-Ca ffeine-Co d 03/27 completed Medicati on Descript ion: aspirin/ butalbit al/caffe ine/code ine; Route:or al; refills: 0 Not Available Not Available Not Available Vitamin B1 active Not Available Not Available Not Available Vitamin B12 active Not Available Not Available Not Available Collagen Plus Vitamin C active Not Available Not Available No t Available Fiber Therapy (ca polycarbo josh) 625 mg tablet Take by oral route. active Not Available Not Available No t Available Vitamin B12 03/27 completed Medicati on Descript ion: cyanocob alamin; refills: 0 Not Available Not Available Not Available Ubrelvy 50 mg tablet Take by oral route. 07/21 completed Not Available Not Available Not Available Ubrelvy active Not Available Not Avail able Not Available Alive Women's 50 Plus 07/21 completed Not Available Not Available Not Available Mounjaro 7.5 mg/0.5 mL subcutane ous pen injector Inject by subcutan eous route. active Not Available Not Available No t Available Vitals None Recorded Social History Question Answer Notes LastModified by Organizat ion Details LastModified Time What Was The Date Of Your Most Recent Tobacco Screening? 07/23/2023 [email or web address] Information not available 07/23/2023 Sex: Female Functional Status Question Answer Note LastModified by Organization D etails LastModified Time Do you or have you ever used any other forms of tobacco or nicotine? No [email or web address] Information not available 03/25/2023 Mental Status None recorded. Family History Nothing Reported. Medical History Condition Response Anxiety Disorder Y Diabetes Y Other Y Arthritis Y Basal Cell Carcinoma Y Skin Cancer Y Fibromyalgia Y Diverticulitis Y Hypothyroidism Y Gynecological HistoryNo gynecological history recorded. Obstetrics History GPAL:G 0 P 0 0 0 0 Past Encounters Encounter ID Performer Location Encounter Start Date Encounter Closed Date Diagnosis/Indication Diagnosis SNOMED-CT Code Diagnosis ICD10 Code Diagnosis IMO Codes Diagnosis Note [id number] MARGARITA MCCLOUD MD [address] [address] 03/25/2023 08:52:43 03/28/2023 15:43:30 Basal cell carcinoma of lower extremity 574231296 C44.719 Biopsy proven BCC, superficia l on the ;eft distal calfPathol ogy discussed with patientSit e confirmed with photo Dermatitis of eyelid 934 40203 H01.134 The nature of the diagnosis was explained. Patient was given eyelid derm handout 01/2023. She does not remember if she uses any of the products mentioned. Recommende d not using any of these products mentioned in handout x 2 months and see if improvemen t.Can start adding these back in one at a time at that point and see how skin reacts.Rec ommended Vanicream Free & Clear shampoo and conditione r.No mascara or makeup on the eyes.Recom mended Vaseline ointment, Cerave, Vanicream or Cetaphil every day to moisturize . If not better, will discuss patch testing. Explained that sometimes we do not find the exact cause of this and sometimes it is just eczema and there is no allergen.D iscussed keeping a diary of when this flares and what patient was doing/in g at the time of flare. Recommende d Cetirizine 10mg QAMContinu e hydrocorti sone 2.5% ointment twice a day for up to two weeks, take one week break, repeat as needed [id number] MARGARITA MCCLOUD MD [address] [address] 07/23/2023 09:14:35 07/23/2023 12:30:38 History of malignant neoplasm of skin 076506414 Z85.828 - No evidence of recurrence today- Call with any worrisome lesions or if treated lesions return- Return at regular intervals for skin exam as recommende d most recent, 01/2023 Multiple b enign melanocytic nevi 927075422 D22.5 - Benign moles seen on exam today - SPF 30 or higher broad-spec trum sunscreen recommende d with re-applica tion every 2 hours - Discussed sun protection measures, including wide-brimm ed hat, sun-protec tive clothing, and avoidance of sun during peak hours of 10am-4pm - Avoid tanning beds as these can increase the chances of all 3 types of skin cancer - Instructed to monitor for changes and to call us for appointmen t with any changing or worrisome lesions Seborrheic keratosis 394 328645 L82.1 - Benign overgrowth s of skin - Hereditary Senile angioma 7266045 I 78.1 - Benign blood vessel growths - Hereditary Solar lentigo 85477252 L 81.4 - Benign brown spots - Sun-induce d Dermatofib won of right lower limb 0836588508 940167 D23.71 Dermatofib romas are benign tumors of fibrous cells. They may start from a small injury to the skin. They have a low likelihood of becoming cancerous but should be monitored for changes. RTC if changing. If bothersome , can be excised. Actinic keratosis 805252 007 L57.0 Actinic keratoses are precancero us lesions that may progress to squamous cell carcinoma if untreated. UV light and genetics may increase risk. Treated lesions should blister, scab over, and heal within a few weeks. If treated lesion(s) does not resolve within 1-2 months, patient agrees to follow up for re-evaluat ion. Neoplasm o f uncertain behavior of skin 39700774 D48.5 Left infraclavi cular chest - 1cm pink pearly papule with vessels - R/o BCC vs BLK Dermatitis of eyelid 934 98257 H01.134 The nature of the diagnosis was explained. Patient was given eyelid derm handout 01/2023. Pt lost this and is unsure if she uses any products on the listGave handout again today Recommende d not using any of these products mentioned in handout x 2 months and see if improvemen t.Can start adding these back in one at a time at that point and see how skin reacts.Rec ommended Vanicream Free & Clear shampoo and conditione r.No mascara or makeup on the eyes.Recom mended Vaseline ointment, Cerave, Vanicream or Cetaphil every day to moisturize . If not better, will discuss patch testing. Explained that sometimes we do not find the exact cause of this and sometimes it is just eczema and there is no allergen.D iscussed keeping a diary of when this flares and what patient was doing/usin g at the time of flare. Pt has been using hydrocorti sone ointment qd 4-5 days with flares and is not improving Recommende d Cetirizine 10mg QAMIncreas e hydrocorti sone 2.5% ointment twice a day for up to two weeks, take one week break, repeat as needed [id number] MARGARITA MCCLOUD MD [address] [address] 01/27/2024 15:20:24 01/28/2024 15:31:22 History of malignant neoplasm of skin 691550687 Z85.828 - No evidence of recurrence today- Call with any worrisome lesions or if treated lesions return- Return at regular intervals for skin exam as recommende d most recent skin cancer - 01/2023 Multiple b enign melanocytic nevi 425153878 D22.5 - Benign moles seen on exam today - SPF 30 or higher broad-spec trum sunscreen recommende d with re-applica tion every 2 hours - Discussed sun protection measures, including wide-brimm ed hat, sun-protec tive clothing, and avoidance of sun during peak hours of 10am-4pm - Avoid tanning beds as these can increase the chances of all 3 types of skin cancer - Instructed to monitor for changes and to call us for appointmen t with any changing or worrisome lesions Seborrheic keratosis 394 622255 L82.1 - Benign overgrowth s of skin - Hereditary Senile angioma 8240770 I 78.1 - Benign blood vessel growths - Hereditary Solar lentigo 35697536 L 81.4 - Benign brown spots - Sun-induce d Actinic keratosis 007 L57.0 Actinic keratoses are precancero us lesions that may progress to squamous cell carcinoma if untreated. UV light and genetics may increase risk. Treated lesions should blister, scab over, and heal within a few weeks. If treated lesion(s) does not resolve within 1-2 months, patient agrees to follow up for re-evaluat ion. [id number] MARGARITA MCCLOUD MD [address] [address] 07/21/2024 09:55:12 07/21/2024 12:25:26 History of malignant neoplasm of skin 711864813 Z85.828 - No evidence of recurrence today- Call with any worrisome lesions or if treated lesions return- Return at regular intervals for skin exam as recommende d most recent skin cancer - 01/2023 Multiple b enign melanocytic nevi 462410575 D22.5 - Benign moles seen on exam today - SPF 30 or higher broad-spec trum sunscreen recommende d with re-applica tion every 2 hours - Discussed sun protection measures, including wide-brimm ed hat, sun-protec tive clothing, and avoidance of sun during peak hours of 10am-4pm - Avoid tanning beds as these can increase the chances of all 3 types of skin cancer - Instructed to monitor for changes and to call us for appointmen t with any changing or worrisome lesions Seborrheic keratosis 394 503681 L82.1 - Benign overgrowth s of skin - Hereditary Senile angioma 3232821 I 78.1 - Benign blood vessel growths - Hereditary Solar lentigo 76703313 L 81.4 - Benign brown spots - Sun-induce d Actinic keratosis 007 L57.0 Actinic keratoses are precancero us lesions that may progress to squamous cell carcinoma if untreated. UV light and genetics may increase risk. Treated lesions should blister, scab over, and heal within a few weeks. If treated lesion(s) does not resolve within 1-2 months, patient agrees to follow up for re-evaluat ion. Health Concerns Section Related Observation LastModified by Organization Detai ls LastModified Time None Recorded Concern Status LastModified by Organization Details LastModified Time None Recorded Advance Directives Directive None Recorded Payers Insurance Date Sequence Insurance Name Policy Number Policy Noonan Covered Member ID Noonan Member ID Guarantor Name 09/01/2024 PAYMENT PLAN Koki Cunningham 07/21/2024 1 [place] [id number] Koki Cunningham [id number] Koki Cunningham Notes Date Note Type Note Provider Name and Address Organization Details Recorded Time 03/25/2023 text/html Skin LesionRepor griffin by PatientPatient is here for an ED&C - type of cancer: BCC - location: left distal calf MARGARITA MCCLOUD MD [address] [place] [address], [phone], [facility] 03/25/2023 12:18:12 07/23/2023 text/html ROS as noted in the HPI Here for a full body skin examination - last skin check:January 2023 - history of skin cancer - BCC and Ak's. - last skin cancer was in 2022 - spots of concern today: Right lower leg, chest. MARGARITA MCCLOUD MD [address] [place] [address], [phone], [facility] 07/23/2023 17:08:21 01/27/2024 text/html ROS as noted in the HPI Here for a full body skin examination - last skin check: July 2023- history of skin cancer - BCC and Ak's.- last skin cancer was in 2022- spots of concern today: chest MARGARITA MCCLOUD MD [address] [place] [address], [phone], [facility] 01/27/2024 16:49:52 07/21/2024 text/html ROS as noted in the HPI Here for a full body skin examination - last skin check: 01/2024- history of skin cancer - BCC- last skin cancer was in 01/2023, left distal calf- spots of concern today: none MARGARITA MCCLOUD MD [address] [place] [address], [phone], [facility] 07/21/2024 12:26:52 OBGyn Episode No OBEpisode recorded.
[2025-01-21 08:27] LABS: Hematocrit 39.6 % (37.0-47.0); Hemoglobin 12.6 g/dL (12.2-16.2); Immature Granulocytes % 0.2 %; Mean Corpuscular HGB Conc 31.8 g/dL (31.8-35.4); Mean Corpuscular Hemoglobin 27.5 pg (27.0-31.2); Mean Corpuscular Volume 86.5 fl (81-99); Nucleated Red Blood Cells % 0 %; Platelet Count 269 K/mm3 (142-424); Red Blood Count 4.58 M/mm3 (4.20-5.40); Red Cell Distribution Width-SD 41.6 fL; White Blood Count 4.5 K/mm3 (4.8-10.8)
[2025-01-21 08:53] LABS: Albumin Level 4.0 g/dl (3.5-5.0); Chloride 98 mmol/L (98-107); Potassium 3.6 mmoL/L (3.5-5.1)
[2025-01-21 08:56] LABS: Alanine Aminotransferase 18 U/L (12-78); Albumin/Globulin Ratio 1.5 (1.1-1.8); Alkaline Phosphatase 47 U/L (38-126); Anion Gap 9.6 mEq/L (5-15); Aspartate Amino Transferase 24 U/L (14-36); Bilirubin,Total 0.5 mg/dl (0.2-1.3); Blood Urea Nitrogen 21 mg/dl (7-17); Calcium 9.8 mg/dl (8.4-10.2); Carbon Dioxide 33 mmol/L (22.0-30.0); Cholesterol 206 mg/dl (140-200); Creatinine,Serum 1.00 mg/dl (0.52-1.04); Estimated Glomerular Filt Rate 57 ml/min (>60); GFR (African American) 69 ML/MIN (>60); Globulin 2.7 g/dL (1.3-3.2); Glucose 94 mg/dl (74-100); Sodium 137 mmol/L (136-145); Total Protein,Serum 6.7 g/dl (6.3-8.2); Triglycerides 108 mg/dl (30-150)
[2025-01-21 08:57] LABS: Iron 101 ug/dL (37-170)
[2025-01-21 08:57] LABS: HDL Cholesterol 54 mg/dl (40-60); Magnesium 1.9 mg/dl (1.6-2.3)
[2025-01-21 09:07] LABS: Total Iron Binding Capacity 310 ug/dL (265-497)
[2025-01-21 09:13] LABS: Free T4 (Free Thyroxine) 1.26 ng/dl (0.78-2.19)
[2025-01-21 09:27] LABS: Thyroid Stimulating Hormone 3.65 uIU/mL (0.465-4.68)
[2025-01-21 09:35] LABS: Ferritin 113 ng/ml (11.1-264)
[2025-01-21 10:11] LABS: 25-OH Vitamin D, Total 47.4 ng/mL (30-100)
[2025-01-21 10:44] LABS: Vitamin B12 > 1000 pg/mL (239-931)
[2025-01-21 11:17] LABS: Folate 4.99 ng/mL
[2025-01-21 12:02] LABS: Hemoglobin A1C 5.0 % (4.0-6.0)
[2025-01-22 09:44] LABS: Prealbumin 32 mg/dL (10-36)
[2025-01-22 10:11] LABS: Triiodothyronine (T3) Free 2.3 pg/mL (2.0-4.4)
== END 2025-01-21 23:59 | disposition home or self-care (01) ==
LOC: LAB 07:54
PROVIDERS: PCP Family Medicine; Visit Provider Physician Assistant
DX: E03.9 Hypothyroidism, unspecified (principal); E11.65 Type 2 diabetes mellitus with hyperglycemia; E78.00 Pure hypercholesterolemia, unspecified; R25.2 Cramp and spasm; I10 Essential (primary) hypertension; E55.9 Vitamin D deficiency, unspecified; Z90.3 Acquired absence of stomach [part of]; Z91.89 Other specified personal risk factors, not elsewhere classified
CPT/HCPCS: 36415; 80053; 80061; 82306; 82607; 82728; 82746; 83036; 83540; 83550; 83735; 84134; 84425; 84439; 84443; 84446; 84481; 84590; 85025